=== PATIENT | female | born 1990 | race African-American/Black ===

== ENCOUNTER 2018-11-12 10:01 | Emergency (ER) | payer SELFPAY ==
--- NOTE | 2018-11-12 10:56 | RAD REPORT ---
EXAM DESCRIPTION: RAD - Chest Pa And Lat (2 Views) - 11/12/2018 10:37 am CLINICAL HISTORY: Cough and congestion COMPARISON: April 2014 TECHNIQUE: PA and lateral views of the chest were obtained. FINDINGS: The lungs are clear. Heart size is normal and central vasculature is within normal limit s. No pleural effusion or pneumothorax seen. No acute bony finding noted. No aortic abnormality. No significant change from comparison. IMPRESSION: No acute cardiopulmonary process.
--- NOTE | 2018-11-12 11:21 | ER ---
Nurse's Notes [facility] Name: Robyn Causey Age: 28 yrs Sex: Female : 1990 Arrival Date: 11/12/2018 Time: 10:06 Bed 20 Private MD: Diagnosis: Acute upper respiratory infection, unspecified Presentation: 11/12 10:14 Presenting complaint: Patient states: productive cough x 1 week. Denies fever. Pt ss reports chest soreness from excessive coughing. Transition of care: patient was not received from another setting of care. Resp Distress? No respiratory distress is noted at this time. Onset of symptoms was November 05, 2018. Risk Assessment: Do you want to hurt yourself or someone else? Patient reports no desire to harm self or others. Initial Sepsis Screen: Does the patient meet any 2 criteria? No. Patient's initial sepsis screen is negative. Initial Sepsis Screen: Does the patient have a suspected source of infection? Yes: Productive cough/pneumonia. Care prior to arrival: None. 10:14 Method Of Arrival: Ambulatory ss 10:14 Acuity: SEBAS 4 ss PUBLIC RELATIONS: 10:43 LMP N/A - . tw2 Historical: - Allergies: 10:16 Codeine; ss 10:16 Ibuprofen; ss 10:16 Aspirin; ss - Home Meds: 10:16 None [Active]; ss - PMHx: 10:16 Hypertension; ss - PSHx: 10:16 None; ss - Immunization history:: Adult Immunizations up to date. - Social history:: Smoking status: Patient/guardian denies using tobacco, the patient reports quitting approximately 2 years ago. - Ebola Screening: : Patient denies exposure to infectious person Patient denies travel to an Ebola-affected area in the 21 days before illness onset. Screenin:10 Abuse screen: Denies threats or abuse. Nutritional screening: No deficits noted. tw2 Tuberculosis screening: No symptoms or risk factors identified. Fall Risk None identified. Assessment: 10:35 Reassessment: pt in imaging at this time, unavailable at this time for flu and strep tw2 swabs. 10:42 Reassessment: pt bk from imaging at this time, nad. General: Appears in no apparent tw2 distress. obese, Behavior is calm, cooperative, agitated. Pain: Complains of pain in uvula, left aspect of posterior pharynx and right aspect of posterior pharynx. Neuro: Level of Consciousness is awake, alert, obeys commands, Oriented to person, place, time, situation. Cardiovascular: Heart tones S1 S2 Capillary refill < 3 seconds Patient's skin is warm and dry. Respiratory: Reports pain with cough pain with respiration Airway is patent Respiratory effort is even, unlabored, Respiratory pattern is regular, symmetrical, Breath sounds are clear bilaterally. GI: No signs and/or symptoms were reported involving the gastrointestinal system. Abdomen is round non-distended, obese. : No signs and/or symptoms were reported regarding the genitourinary system. EENT: Reports nasal congestion nasal discharge. Derm: No signs and/or symptoms reported regarding the dermatologic system. Musculoskeletal: Range of motion: intact in all extremities. 11:21 Reassessment: Patient appears in no apparent distress at this time. No changes from tw2 previously documented assessment. Patient and/or family updated on plan of care and expected duration. Pain level reassessed. Patient is alert, oriented x 3, equal unlabored respirations, skin warm/dry/pink. 11:31 Reassessment: Patient appears in no apparent distress at this time. Patient and/or tw2 family updated on plan of care and expected duration. Pain level reassessed. Vital Signs: 10:16 BP 147 / 81; Pulse 87; Resp 17; Temp 97.4(TE); Pulse Ox 100% on R/A; Weight 108.86 kg; ss Height 5 ft. 4 in. (162.56 cm); Pain 7/10; 11:16 BP 112 / 58; Pulse 75; Resp 17; Temp 97.9(TE); Pulse Ox 100% on R/A; tw2 10:16 Body Mass Index 41.20 (108.86 kg, 162.56 cm) ED Course: 10:06 Patient arrived in ED. mr 10:07 Rajani Farmer FNP-C [facility] kb 10:07 Osmin Mann MD is Attending Physician. kb 10:10 Bed in low position. Call light in reach. tw2 10:15 Triage completed. ss 10:16 Arm band placed on right wrist. ss 10:25 Parul Jackson, [place] is Primary Nurse. tw2 10:33 Chest Pa And Lat (2 Views) XRAY In Process Unspecified. EDMS 10:44 Flu Sent. tw2 10:44 Strep Sent. tw2 11:30 No provider procedures requiring assistance completed. Patient did not have IV access tw2 during this emergency room visit. Administered Medications: No medications were administered Outcome: 11:20 Discharge ordered by . kb 11:31 Discharged to home ambulatory. tw2 11:31 Condition: stable 11:31 Discharge instructions given to patient, Instructed on discharge instructions, follow up and referral plans. medication usage, Demonstrated understanding of instructions, follow-up care, medications, Prescriptions given X 2. 11:31 Patient left the ED. tw2 Signatures: Dispatcher [employer] EDMS Rajani Farmer, CHIEF OPERATOR HYDROFORMER-C CHIEF OPERATOR HYDROFORMER-Karen CardonaRima mr Valerie Bingham, RN RN Parul Jackson RN RN tw2
--- NOTE | 2018-11-12 11:21 | EDPHYS ---
Physician Documentation [facility] Name: Robyn Causey Age: 28 yrs Sex: Female : 1990 Arrival Date: 11/12/2018 Time: 10:06 Bed 20 Private MD: ED Physician Osmin Mann HPI: 11/12 11:05 This 28 yrs old Black Female presents to ER via Ambulatory with complaints of Cough, kb Congestion, Chest Pain. 11:05 The patient or guardian reports cough, that is intermittent, described as moderate, kb with no sputum. Onset: The symptoms/episode began/occurred 1 week(s) ago. Severity of symptoms: At their worst the symptoms were mild, moderate, in the emergency department the symptoms are unchanged. Modifying factors: The symptoms are alleviated by nothing, the symptoms are aggravated by nothing. Associated signs and symptoms: Pertinent positives: rhinorrhea, Pertinent negatives: chest pain, diarrhea, ear ache, fever, nausea, sore throat, vomiting. The patient has not experienced similar symptoms in the past. The patient has not recently seen a physician. Pt reports cough and runny nose for a week. Denies fever.. 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 tw2 Historical: - Allergies: 10:16 Codeine; ss 10:16 Ibuprofen; ss 10:16 Aspirin; ss - Home Meds: 10:16 None [Active]; ss - PMHx: 10:16 Hypertension; ss - PSHx: 10:16 None; ss - Immunization history:: Adult Immunizations up to date. - Social history:: Smoking status: Patient/guardian denies using tobacco, the patient reports quitting approximately 2 years ago. - Ebola Screening: : Patient denies exposure to infectious person Patient denies travel to an Ebola-affected area in the 21 days before illness onset. ROS: 10:58 Constitutional: Negative for fever, chills, and weight loss, Neck: Negative for injury, kb pain, and swelling, Cardiovascular: Negative for chest pain, palpitations, and edema, Abdomen/GI: Negative for abdominal pain, nausea, vomiting, diarrhea, and constipation, Back: Negative for injury and pain, : Negative for injury, bleeding, discharge, and swelling, MS/Extremity: Negative for injury and deformity, Skin: Negative for injury, rash, and discoloration, Neuro: Negative for headache, weakness, numbness, tingling, and seizure. 10:58 ENT: Positive for rhinorrhea. 10:58 Respiratory: Positive for cough, Negative for dyspnea on exertion, hemoptysis, orthopnea, pleurisy, shortness of breath, sputum production, wheezing. Exam: 10:58 Constitutional: This is a well developed, well nourished patient who is awake, alert, kb and in no acute distress. Head/Face: Normocephalic, atraumatic. ENT: Nares patent. No nasal discharge, no septal abnormalities noted. Tympanic membranes are normal and external auditory canals are clear. Oropharynx with no redness, swelling, or masses, exudates, or evidence of obstruction, uvula midline. Mucous membranes moist. Neck: Trachea midline, no thyromegaly or masses palpated, and no cervical lymphadenopathy. Supple, full range of motion without nuchal rigidity, or vertebral point tenderness. No Meningismus. Chest/axilla: Normal chest wall appearance and motion. Nontender with no deformity. No lesions are appreciated. Cardiovascular: Regular rate and rhythm with a normal S1 and S2. No gallops, murmurs, or rubs. Normal PMI, no JVD. No pulse deficits. Respiratory: Lungs have equal breath sounds bilaterally, clear to auscultation and percussion. No rales, rhonchi or wheezes noted. No increased work of breathing, no retractions or nasal flaring. Abdomen/GI: Soft, non-tender, with normal bowel sounds. No distension or tympany. No guarding or rebound. No evidence of tenderness throughout. Back: No spinal tenderness. No costovertebral tenderness. Full range of motion. Skin: Warm, dry with normal turgor. Normal color with no rashes, no lesions, and no evidence of cellulitis. MS/ Extremity: Pulses equal, no cyanosis. Neurovascular intact. Full, normal range of motion. Neuro: Awake and alert, GCS 15, oriented to person, place, time, and situation. Cranial nerves II-XII grossly intact. Motor strength 5/5 in all extremities. Sensory grossly intact. Cerebellar exam normal. Normal gait. Vital Signs: 10:16 BP 147 / 81; Pulse 87; Resp 17; Temp 97.4(TE); Pulse Ox 100% on R/A; Weight 108.86 kg; ss Height 5 ft. 4 in. (162.56 cm); Pain 7/10; 11:16 BP 112 / 58; Pulse 75; Resp 17; Temp 97.9(TE); Pulse Ox 100% on R/A; tw2 10:16 Body Mass Index 41.20 (108.86 kg, 162.56 cm) ss MDM: 10:17 Patient medically screened. kb 10:58 Data reviewed: vital signs, nurses notes. Data interpreted: Pulse oximetry: on room air kb is 100 %. Interpretation: normal. 11:20 Counseling: I had a detailed discussion with the patient and/or guardian regarding: the kb historical points, exam findings, and any diagnostic results supporting the discharge/admit diagnosis, lab results, radiology results, the need for outpatient follow up, a family practitioner, to return to the emergency department if symptoms worsen or persist or if there are any questions or concerns that arise at home. 11/12 10:20 Order name: Flu; Complete Time: 11:20 kb 11/12 10:20 Order name: Strep; Complete Time: 10:58 kb 11/12 10:20 Order name: Chest Pa And Lat (2 Views) XRAY; Complete Time: 10:58 kb 11/12 10:58 Order name: Throat Culture EDMS Administered Medications: No medications were administered Disposition: 18:53 Co-signature as Attending Physician, Osmin Mann MD Available for consultation at ps1 all times. . Disposition: 11/12/18 11:20 Discharged to Home. Impression: Acute upper respiratory infection, unspecified. - Condition is Stable. - Discharge Instructions: Upper Respiratory Infection, Adult, [id number]. - Prescriptions for Prednisone 20 mg Oral Tablet - take 1 tablet by ORAL route once daily for 5 days; 5 tablet. Tessalon Perles 100 mg Oral Capsule - take 1 capsule by ORAL route every 8 hours As needed; 15 capsule. - Medication Reconciliation Form, Thank You Letter, Antibiotic Education, Prescription Opioid Use, Work release form form. - Follow up: Emergency Department; When: As needed; Reason: Worsening of condition. Follow up: Private Physician; When: 2 - 3 days; Reason: Recheck today's complaints, Continuance of care, Re-evaluation by your physician. Signatures: Dispatcher [employer] EDMS Rajani Farmer FNP-C FNP-Valerie Cantrell, RN RN ss Parul Jackson RN RN tw2 Osmin Mann MD MD ps1 Corrections: (The following items were deleted from the chart) 11:31 11:20 11/12/2018 11:20 Discharged to Home. Impression: Acute upper respiratory tw2 infection, unspecified. Condition is Stable. Forms are Medication Reconciliation Form, Thank You Letter, Antibiotic Education, Prescription Opioid Use. Follow up: Emergency Department; When: As needed; Reason: Worsening of condition. Follow up: Private Physician; When: 2 - 3 days; Reason: Recheck today's complaints, Continuance of care, Re-evaluation by your physician. kb
[2018-11-12 11:45] VITALS: BP 112/58; TEMP 97.9; O2SAT 100
== END 2018-11-12 11:31 | disposition home or self-care (01) ==
LOC: ER 10:01
DX: J06.9 Acute upper respiratory infection, unspecified (principal); I10 Essential (primary) hypertension; Z88.5 Allergy status to narcotic agent; Z88.6 Allergy status to analgesic agent
CPT/HCPCS: 71046; 87070; 87081; 87804; 99283

== ENCOUNTER 2019-01-26 12:42 | Emergency (ER) | payer SELFPAY ==
--- OUTSIDE RECORDS SUMMARY | 2019-01-26 12:46 | XMS REPORT | Summary of Care ---
:1990 Author Organization [facility] Address [address] [place] [address] Care Team Providers Name Role Phone Santi Moura LINE REPAIRER TOWER Primary Care Provider Encounter Details Date Type Department Care Team Description 01/26/2019 [facility], [facility] [facility] [address] [place] [address] [facility] [phone] [place] [address] Allergies Active Allergy Reactions Severity Noted Date Comments Aspirin Other - See comments High 09/23/2017 Seizure Hydrocodone Other - See comments High 09/23/2017 seizures Ibuprofen Other - See comments High 09/23/2017 Seizures documented as of this encounter (statuses as of 01/26/2019) Medications Medication Sig Dispensed Refills Start Date End Date Status MELATONIN ORAL Take by mouth. 0 Active norethindrone 0.35 mg Take 1 tablet by 1 Package 0 12/05/2018 Active tabletIndications: mouth daily. Missed menses norethindrone 0.35 mg Take 1 tablet by 1 Package 2 12/25/2018 Active tabletIndications: mouth daily. Encounter for contraceptive management, unspecified type documented as of this encounter (statuses as of 01/26/2019) Active Problems Problem Noted Date Well woman exam 12/15/2018 Encounter for well woman exam 09/23/2017 Encounter for contraceptive management, unspecified type 09/23/2017 Screening for STD (sexually transmitted disease) 09/23/2017 Obesity, unspecified classification, unspecified obesity type, unspecified whether serious comorbidity present BMI 40.0-44.9, adult 09/23/2017 Metrorrhagia 09/23/2017 documented as of this encounter (statuses as of 01/26/2019) Immunizations Name Administration Dates Next Due TDAP (ADACEL) VACCINE 07/04/2017 documented as of this encounter Social History Tobacco Use Types Packs/Day Years Used Date Former Smoker Cigarettes 09/23/2004 - 09/23/2016 Smokeless Tobacco: Never Used Comments: on and off since age 14. quit 2017 Alcohol Use Drinks/Week oz/Week Comments Yes ocassional Sex Assigned at Date Recorded Not on file Job Start Date Occupation Industry Not on file Not on file Not on file Travel History Travel Start Travel End No recent travel history available. documented as of this encounter Last Filed Vital Signs Not on filedocumented in this encounter Plan of Treatment Date Type Specialty Care Team Description 03/09/2019 Nurse Visit OB Satellites Visit, [facility] Nurse Health Maintenance Due Date Last Done Comments VARICELLA VACCINES (1 of 2 - 13+ 2003 2-dose series) INFLUENZA VACCINE (#1) 2019 PAP SMEAR 09/23/2020 09/23/2017 DTaP,Tdap,and Td Vaccines (2 - Td) 07/04/2027 07/04/2017 PNEUMOCOCCAL 0-64 YEARS COMBINED Aged Out No longer eligible based on SERIES patient's age to complete this topic documented as of this encounter Results Not on filedocumented in this encounter Insurance Payer Benefit Plan Subscriber ID Effective Phone Address Type / Group Dates [facility] xxxxxxxxx 2017-Prese [phone] Medicaid [place]OM[place] [id number] [place] [address] documented as of this encounter Advance Directives Name Relationship Healthcare Agent Relationship Communication Jonelle Causey Mother Primary healthcare agent
--- OUTSIDE RECORDS SUMMARY | 2019-01-26 12:46 | XMS REPORT | Summary of Care ---
:1990 Author Organization [facility] Address [address] [place] [address] Care Team Providers Name Role Phone Santi Moura [facility] Primary Care Provider Reason for Visit Reason Comments Refill Request Encounter Details Date Type Department Care Team Description 01/13/2019 Refill [facility] [place] Ref[place] Request [address] [facility] [id number] [place] [address] [place] [address] Allergies Active Allergy Reactions Severity Noted Date Comments Aspirin Other - See comments High 09/23/2017 Seizure Hydrocodone Other - See comments High 09/23/2017 seizures Ibuprofen Other - See comments High 09/23/2017 Seizures documented as of this encounter (statuses as of 01/13/2019) Medications Medication Sig Dispensed Refills Start Date End Date Status MELATONIN ORAL Take by mouth. 0 Active norethindrone 0.35 mg Take 1 tablet by 1 Package 0 12/05/2018 Active tabletIndications: mouth daily. Missed menses norethindrone 0.35 mg Take 1 tablet by 1 Package 2 12/25/2018 Active tabletIndications: mouth daily. Encounter for contraceptive management, unspecified type documented as of this encounter (statuses as of 01/13/2019) Active Problems Problem Noted Date Well woman exam 12/15/2018 Encounter for well woman exam 09/23/2017 Encounter for contraceptive management, unspecified type 09/23/2017 Screening for STD (sexually transmitted disease) 09/23/2017 Obesity, unspecified classification, unspecified obesity type, unspecified whether serious comorbidity present BMI 40.0-44.9, adult 09/23/2017 Metrorrhagia 09/23/2017 documented as of this encounter (statuses as of 01/13/2019) Immunizations Name Administration Dates Next Due TDAP [...] Description 03/09/2019 Nurse Visit OB Satellites Visit, [facility] Nurse Health Maintenance Due Date Last Done Comments VARICELLA VACCINES (1 of 2 - 13+ 2003 2-dose series) INFLUENZA VACCINE 02/01/2019 PAP SMEAR 09/23/2020 09/23/2017 DTaP,Tdap,and Td Vaccines (2 - Td) 07/04/2027 07/04/2017 PNEUMOCOCCAL 0-64 YEARS COMBINED Aged Out No longer eligible based on SERIES patient's age to complete this topic documented as of this encounter Results Not on filedocumented in this encounter Visit Diagnoses Diagnosis Missed menses Absence of menstruation documented in this encounter Insurance Payer Benefit Plan Subscriber ID Effective Phone Address Type / Group Dates [facility] xxxxxxxxx 2017-Prese [phone] Medicaid WOMEN nt [address] [place] [address] documented as of this encounter Advance Directives Name Relationship Healthcare Agent Relationship Communication Jonelle Causey Mother Primary healthcare agent
--- OUTSIDE RECORDS SUMMARY | 2019-01-26 12:46 | XMS REPORT ---
:1990 [facility] Address [address] [place] [address] Dr. Sauceda [address] [place] [address] Care Team Providers Name Role Phone Unavailable Unavailable Unavailable Problems This patient has no known problems. Allergies, Adverse Reactions, Alerts This patient has no known allergies or adverse reactions. Medications This patient has no known medications.
--- OUTSIDE RECORDS SUMMARY | 2019-01-26 12:46 | XMS REPORT | Summary of Care ---
:1990 Author Organization [facility] Address [address] [place] [address] Care Team Providers Name Role Phone Santi Moura Andrei TRUCK CATERER Primary Care Provider Reason for Visit Reason Comments Other renewel request for maricruz tablet #28 Encounter Details Date Type Department Care Team Description 01/12/2019 Telephone [facility]- Scarlett Camacho Other (renewel request Erin Vera [facility] for maricruz tablet #28 [address] ) [facility] [address] [place], [place] [id number] Allergies Active Allergy Reactions Severity Noted Date Comments Aspirin Other - See comments High 09/23/2017 Seizure Hydrocodone Other - See comments High 09/23/2017 seizures Ibuprofen Other - See comments High 09/23/2017 Seizures documented as of this encounter (statuses as of 01/12/2019) Medications Medication Sig Dispensed Refills Start Date End Date Status MELATONIN ORAL Take by mouth. 0 Active norethindrone 0.35 mg Take 1 tablet by 1 Package 0 12/05/2018 Active tabletIndications: mouth daily. Missed menses norethindrone 0.35 mg Take 1 tablet by 1 Package 2 12/25/2018 Active tabletIndications: mouth daily. Encounter for contraceptive management, unspecified type documented as of this encounter (statuses as of 01/12/2019) Active Problems Problem Noted Date Well woman exam 12/15/2018 Encounter for well woman exam 09/23/2017 Encounter for contraceptive management, unspecified type 09/23/2017 Screening for STD (sexually transmitted disease) 09/23/2017 Obesity, unspecified classification, unspecified obesity type, unspecified whether serious comorbidity present BMI 40.0-44.9, adult 09/23/2017 Metrorrhagia 09/23/2017 documented as of this encounter (statuses as of 01/12/2019) Immunizations Name Administration Dates Next Due TDAP [...] Description 03/09/2019 Nurse Visit OB Satellites Visit, [facility] Nurse Health Maintenance Due Date Last Done [...] Address Type / Group Dates [facility] xxxxxxxxx 2017-Amaya [phone] Medicaid WOMEN nt [address] [place] [address] documented as of this encounter Advance Directives Name Relationship Healthcare Agent Relationship Communication Jonelle Causey Mother Primary healthcare agent
[2019-01-26] MEDS ORDERED: ALBUTEROL 2.5 MG/3 ML NEB SOL ONE (13:58)
[2019-01-26] MEDS ORDERED: IPRATROPIUM BROM 0.5MG/2.5ML ONE (13:58)
--- NOTE | 2019-01-26 15:26 | ER ---
Nurse's Notes [facility] Name: Robyn Causey Age: 28 yrs Sex: Female : 1990 Arrival Date: 01/26/2019 Time: 12:45 Bed 23 Private MD: None, None Diagnosis: Acute upper respiratory infection, unspecified Presentation: 01/26 13:05 Presenting complaint: Patient states: productive cough, body aches, nasal congestion iw and mild sore throat since yesterday, no fever. Transition of care: patient was not received from another setting of care. Onset of symptoms was January 25, 2019. Risk Assessment: Do you want to hurt yourself or someone else? Patient reports no desire to harm self or others. Initial Sepsis Screen: Does the patient meet any 2 criteria? No. Patient's initial sepsis screen is negative. Does the patient have a suspected source of infection? No. Patient's initial sepsis screen is negative. Care prior to arrival: None. 13:05 Method Of Arrival: Ambulatory iw 13:05 Acuity: SEBAS 4 iw Triage Assessment: 13:47 General: Appears in no apparent distress. comfortable, Behavior is calm, cooperative, bp appropriate for age. Pain: Denies pain. EENT: Reports nasal congestion. Neuro: No deficits noted. Cardiovascular: No deficits noted. Respiratory: Reports cough that is. GI: No signs and/or symptoms were reported involving the gastrointestinal system. : No signs and/or symptoms were reported regarding the genitourinary system. Derm: No deficits noted. Musculoskeletal: No deficits noted. 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 - Social history:: Smoking status: Patient/guardian denies using tobacco. - Ebola Screening: : Patient negative for fever greater than or equal to 101.5 degrees Fahrenheit, and additional compatible Ebola Virus Disease symptoms Patient denies exposure to infectious person Patient denies travel to an Ebola-affected area in the 21 days before illness onset No symptoms or risks identified at this time. Screenin:49 Abuse screen: Denies threats or abuse. Denies injuries from another. Nutritional bp screening: No deficits noted. Tuberculosis screening: No symptoms or risk factors identified. Fall Risk None identified. Assessment: 13:49 General: SEE TRIAGE NOTE. bp 14:49 Reassessment: PT TO XRAY. bp Vital Signs: 13:06 BP 128 / 82; Pulse 98; Resp 18 S; Temp 98.4(O); Pulse Ox 99% on R/A; Weight 99.79 kg; iw Height 5 ft. 4 in. (162.56 cm); Pain 8/10; 13:51 BP 128 / 87; Pulse 93; Pulse Ox 98% ; Pain 7/10; jp3 15:38 BP 126 / 81; Pulse 91; Resp 16; Temp 98.2(O); Pulse Ox 99% on R/A; rv 13:06 Body Mass Index 37.76 (99.79 kg, 162.56 cm) iw ED Course: 12:45 Patient arrived in ED. mr 12:45 None, None is Private Physician. mr 13:06 Triage completed. iw 13:06 Rajani Farmer FNP-C [facility]. kb 13:06 Brock Najera MD is Attending Physician. kb 13:06 Arm band placed on. iw 13:47 Shemar Lantigua, RN is Primary Nurse. bp 13:49 Patient has correct armband on for positive identification. Bed in low position. Call bp light in reach. Side rails up X2. 13:49 Bed in low position. Call light in reach. Warm blanket given. Verbal reassurance given. jp3 Pulse ox on. NIBP on. 13:49 Flu and/or RSV swab sent to lab. Strep swab sent to lab. Patient maintains SpO2 jp3 saturation greater than 95% on room air. 13:50 Strep Sent. jp3 13:50 Flu Sent. jp3 14:22 Radiology exam delayed due to patient receiving breathing treatment at this time. jb2 14:57 Chest Pa And Lat (2 Views) XRAY In Process Unspecified. EDMS 15:39 No provider procedures requiring assistance completed. Patient did not have IV access rv during this emergency room visit. Administered Medications: 14:01 Drug: Albuterol 2.5 mg Route: Inhalation; bp 15:39 Follow up: Response: No adverse reaction rv 14:01 Drug: AtroVENT Aerosol 0.5 mg Route: Inhalation; bp 15:39 Follow up: Response: No adverse reaction rv Outcome: 15:24 Discharge ordered by . cady 15:39 Discharged to home ambulatory. rv 15:39 Condition: good 15:39 Discharge instructions given to patient, Instructed on discharge instructions, follow up and referral plans. Demonstrated understanding of instructions, follow-up care. 15:40 Patient left the ED. rv Signatures: Dispatcher [employer] EDMS Rajani Farmer, FRANCO SUPERVISOR RESEARCH KENNEL-Rima Britton mr LynchBrandon jb2 Sherrill Schumacher, [place] KOROMA iw Shemar Lantigua RN RN bp Vicente, Ronaldo, RN RN rv Maurice Rai jp3
--- NOTE | 2019-01-26 15:26 | EDPHYS ---
Physician Documentation [facility] Name: Robyn Causey Age: 28 yrs Sex: Female : 1990 Arrival Date: 01/26/2019 Time: 12:45 Bed 23 Private MD: None, None ED Physician Brock Najera HPI: 01/26 15:26 This 28 yrs old Black Female presents to ER via Ambulatory with complaints of Cough, kb Chest Congestion, Body aches. 15:26 The patient or guardian reports cough, that is intermittent, described as mild, with no kb sputum, flu symptoms. Onset: The symptoms/episode began/occurred 2 day(s) ago. Severity of symptoms: At their worst the symptoms were mild, moderate, in the emergency department the symptoms are unchanged. Modifying factors: The symptoms are alleviated by nothing, the symptoms are aggravated by nothing. Associated signs and symptoms: Pertinent positives: rhinorrhea. The patient has not experienced similar symptoms in the past. The patient has not recently seen a physician. 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 - Social history:: Smoking status: Patient/guardian denies using tobacco. - Ebola Screening: : Patient negative for fever greater than or equal to 101.5 degrees Fahrenheit, and additional compatible Ebola Virus Disease symptoms Patient denies exposure to infectious person Patient denies travel to an Ebola-affected area in the 21 days before illness onset No symptoms or risks identified at this time. ROS: 15:25 Neck: Negative for injury, pain, and swelling, Cardiovascular: Negative for chest pain, kb palpitations, and edema, Back: Negative for injury and pain, MS/Extremity: Negative for injury and deformity, Skin: Negative for injury, rash, and discoloration, Neuro: Negative for headache, weakness, numbness, tingling, and seizure. 15:25 Constitutional: Positive for body aches, fatigue, malaise. 15:25 ENT: Positive for rhinorrhea, sinus congestion, sore throat. 15:25 Respiratory: Positive for cough, Negative for dyspnea on exertion, hemoptysis, orthopnea, pleurisy, shortness of breath, sputum production, wheezing. Exam: 15:25 Constitutional: This is a well developed, well nourished patient who is awake, alert, kb and in no acute distress. Head/Face: Normocephalic, atraumatic. Neck: Trachea midline, no thyromegaly or masses palpated, and no cervical lymphadenopathy. Supple, full range of motion without nuchal rigidity, or vertebral point tenderness. No Meningismus. Chest/axilla: Normal chest wall appearance and motion. Nontender with no deformity. No lesions are appreciated. Cardiovascular: Regular rate and rhythm with a normal S1 and S2. No gallops, murmurs, or rubs. Normal PMI, no JVD. No pulse deficits. Respiratory: Lungs have equal breath sounds bilaterally, clear to auscultation and percussion. No rales, rhonchi or wheezes noted. No increased work of breathing, no retractions or nasal flaring. Abdomen/GI: Soft, non-tender, with normal bowel sounds. No distension or tympany. No guarding or rebound. No evidence of tenderness throughout. Back: No spinal tenderness. No costovertebral tenderness. Full range of motion. Skin: Warm, dry with normal turgor. Normal color with no rashes, no lesions, and no evidence of cellulitis. MS/ Extremity: Pulses equal, no cyanosis. Neurovascular intact. Full, normal range of motion. Neuro: Awake and alert, GCS 15, oriented to person, place, time, and situation. Cranial nerves II-XII grossly intact. Motor strength 5/5 in all extremities. Sensory grossly intact. Cerebellar exam normal. Normal gait. 15:26 ENT: External ear(s): are unremarkable, Ear canal(s): are normal, TM's: are normal, kb Nose: nasal drainage, that is moderate, and is seen coming from both nares, that is clear, Mouth: is normal, Posterior pharynx: Airway: normal, patent, Tonsils: are normal in appearance, Uvula: normal, midline, swelling, is not appreciated, erythema, that is moderate, exudate, is not appreciated. Vital Signs: 13:06 BP 128 / 82; Pulse 98; Resp 18 S; Temp 98.4(O); Pulse Ox 99% on R/A; Weight 99.79 kg; iw Height 5 ft. 4 in. (162.56 cm); Pain 8/10; 13:51 BP 128 / 87; Pulse 93; Pulse Ox 98% ; Pain 7/10; jp3 15:38 BP 126 / 81; Pulse 91; Resp 16; Temp 98.2(O); Pulse Ox 99% on R/A; rv 13:06 Body Mass Index 37.76 (99.79 kg, 162.56 cm) iw MDM: 13:41 Patient medically screened. kb 15:23 Data reviewed: vital signs, nurses notes. Data interpreted: Pulse oximetry: on room air kb is 98 %. Interpretation: normal. Counseling: I had a detailed discussion with the patient and/or guardian regarding: the historical points, exam findings, and any diagnostic results supporting the discharge/admit diagnosis, lab results, radiology results, the need for outpatient follow up, a family practitioner, to return to the emergency department if symptoms worsen or persist or if there are any questions or concerns that arise at home. 01/26 13:07 Order name: Flu; Complete Time: 14:18 kb 01/26 13:07 Order name: Strep 01/26 13:53 Order name: Chest Pa And Lat (2 Views) XRAY 01/26 14:21 Order name: Throat Culture EDMS Administered Medications: 14:01 Drug: Albuterol 2.5 mg Route: Inhalation; bp 15:39 Follow up: Response: No adverse reaction rv 14:01 Drug: AtroVENT Aerosol 0.5 mg Route: Inhalation; bp 15:39 Follow up: Response: No adverse reaction rv Disposition: 01/26/19 15:24 Discharged to Home. Impression: Acute upper respiratory infection, unspecified. - Condition is Stable. - Discharge Instructions: Upper Respiratory Infection, Adult, [id number]. - Medication Reconciliation Form, Thank You Letter, Antibiotic Education, Prescription Opioid Use form. - Follow up: Private Physician; When: 2 - 3 days; Reason: Recheck today's complaints, Continuance of care, Re-evaluation by your physician. Follow up: Emergency Department; When: As needed; Reason: Worsening of condition. Addendum: 01/27/2019 20:35 Co-signature as Attending Physician, Brock Najera MD I agree with the assessment and c villalta plan of care. Signatures: Dispatcher [employer] EDMS Rajani Farmer, ECOLOGICAL ECONOMIST-C ECOLOGICAL ECONOMIST-Ckb Brock Najera MD MD cha Williams, Irene, Shemar Holly RN, RN RN bp Vicente, Ronaldo, RN RN rv Corrections: (The following items were deleted from the chart) 01/26 15:26 15:25 Constitutional: This is a well developed, well nourished patient who is awake, kb alert, and in no acute distress. Head/Face: Normocephalic, atraumatic. ENT: Nares patent. No nasal discharge, no septal abnormalities noted. Tympanic membranes are normal and external auditory canals are clear. Oropharynx with no redness, swelling, or masses, exudates, or evidence of obstruction, uvula midline. Mucous membranes moist. Neck: Trachea midline, no thyromegaly or masses palpated, and no cervical lymphadenopathy. Supple, full range of motion without nuchal rigidity, or vertebral point tenderness. No Meningismus. Chest/axilla: Normal chest wall appearance and motion. Nontender with no deformity. No lesions are appreciated. Cardiovascular: Regular rate and rhythm with a normal S1 and S2. No gallops, murmurs, or rubs. Normal PMI, no JVD. No pulse deficits. Respiratory: Lungs have equal breath sounds bilaterally, clear to auscultation and percussion. No rales, rhonchi or wheezes noted. No increased work of breathing, no retractions or nasal flaring. Abdomen/GI: Soft, non-tender, with normal bowel sounds. No distension or tympany. No guarding or rebound. No evidence of tenderness throughout. Back: No spinal tenderness. No costovertebral tenderness. Full range of motion. Skin: Warm, dry with normal turgor. Normal color with no rashes, no lesions, and no evidence of cellulitis. MS/ Extremity: Pulses equal, no cyanosis. Neurovascular intact. Full, normal range of motion. Neuro: Awake and alert, GCS 15, oriented to person, place, time, and situation. Cranial nerves II-XII grossly intact. Motor strength 5/5 in all extremities. Sensory grossly intact. Cerebellar exam normal. Normal gait. kb 15:40 15:24 01/26/2019 15:24 Discharged to Home. Impression: Acute upper respiratory rv infection, unspecified. Condition is Stable. Forms are Medication Reconciliation Form, Thank You Letter, Antibiotic Education, Prescription Opioid Use. Follow up: Private Physician; When: 2 - 3 days; Reason: Recheck today's complaints, Continuance of care, Re-evaluation by your physician. Follow up: Emergency Department; When: As needed; Reason: Worsening of condition. kb
--- NOTE | 2019-01-26 15:30 | RAD REPORT ---
EXAM DESCRIPTION: RAD - Chest Pa And Lat (2 Views) - 01/26/2019 2:52 pm CLINICAL HISTORY: Cough;Congestionbody aches, abdominal shielding utilized COMPARISON: November 2018 TECHNIQUE: PA and lateral views of the chest were obtained. FINDINGS: The lungs are clear. Heart size is normal and central vasculature is within normal limit s. No pleural effusion or pneumothorax seen. No acute bony finding noted. No aortic abnormality. IMPRESSION: No acute cardiopulmonary process. No significant change from comparison.
[2019-01-26 16:36] VITALS: BP 126/81; TEMP 98.2; O2SAT 99
== END 2019-01-26 15:40 | disposition home or self-care (01) ==
LOC: ER 12:42
DX: J06.9 Acute upper respiratory infection, unspecified (principal); I10 Essential (primary) hypertension; Z88.5 Allergy status to narcotic agent; Z88.6 Allergy status to analgesic agent
CPT/HCPCS: 71046; 87070; 87081; 87804; 99284

== ENCOUNTER 2021-06-06 16:13 | Emergency (ER) | payer OTHER ==
--- OUTSIDE RECORDS SUMMARY | 2021-06-06 16:16 | XMS REPORT | Continuity of Care Document ---
:1990 Author Organization [facility] t Address [address] [place] [address] Care Team Providers Name Role Phone Andrei GREENBERG Primary Care Physician Unavailable LISETH LAGUERRE Attending Clinician Unavailable UNKNOWN Attending Clinician Unavailable JULES Attending Clinician Unavailable Andrei GREENBERG Attending Clinician Unavailable Payers Payer Name Policy Type Policy Number Effective Date Expiration Date [facility] [id number] 2020 CHOICE MEDICAID 00:00:00 Problems This patient has no known problems. Allergies, Adverse Reactions, Alerts Allergy Allergy Status Severity Reaction(s) Onset Inactive Treating Comm ents Source Name Type Date Date Clinician ASPIRIN DRUG Active High Other-Cmnt 2018-0 Unive rs INGREDI 09-23 ity of 00:00: [address] HYDROCOD DRUG Active High Other-Cmnt 2018-0 Univ ers ONE INGREDI 09-23 ity of 00:00: [address] IBUPROFE DRUG Active High Other-Cmnt 2018-0 Univ ers N INGREDI 09-23 ity of 00:00: [address] Medications This patient has no known medications. Procedures This patient has no known procedures. Encounters Start End Encounter Admission Attending Care Care Encounter Source Date/Time Date/Time Type Type Clinicians Facility Department ID 2021-04-10 2021-04-10 Outpatient Andrei LAGUERRE [facility] [id number] Univers 13:15:00 13:15[id number] 2021-04-10 Outpatient Andrei LAGUERRE [facility] [id number] Univers 13:15:00 13:15:00 MARTA [facility] 2021-03-20 2021-03-20 Outpatient R [facility] [id number] Univers 13:00:00 13:00:[id number] [facility] 2021-03-20 2021-03-20 Outpatient R UNKNOWN, [facility] [id number] Univers 13:00:00 13:00:[address] [facility] 2021-03-19 2021-03-19 Outpatient R [facility] [id number] Univers 13:20:00 13:20:[id number] [facility] 2021-03-19 2021-03-19 Outpatient R YFN [facility] [id number] Univers 13:20:00 13:20:[address]ANNA it y [facility] 2021-03-18 2021-03-18 Outpatient [facility] [id number] Univers 12:00:00 12:00:[id number] [facility] 2021-03-18 2021-03-18 Outpatient R [facility] [id number] Univers 12:00:00 12:00:[address] [facility] 2020-11-17 2020-11-17 Outpatient R DIONICIO, [facility] [id number] Univers 09:00:00 09:00:00 DILAN [id number] ity o [facility] 2020-11-17 2020-11-17 Outpatient R DIONICIO [facility] [id number] Univers 09:00:00 09:00:00 DILAN ity o [facility] 2020-11-16 2020-11-16 Outpatient R GREENBERG, [facility] [id number] Univers 08:45:00 08:45:00 DILAN [id number] ity o f [facility] 2020-11-16 2020-11-16 Outpatient R GREENBERG, [facility] [id number] Univers 08:45:00 08:45:00 DILAN ity o [facility] 2020-04-13 2020-04-13 Outpatient R DIONICIO [facility] [id number] Univers 15:00:00 15:00:00 DILAN [id number] ity o f [facility] 2020-04-13 2020-04-13 Outpatient Andrei GREENBERG [facility] [id number] Univers 15:00:00 15:00:00 DILAN hopper [facility] Results This patient has no known results.
[2021-06-06] MEDS ORDERED: ACETAMINOPHEN 325 MG TABLET ONE (17:00)
--- NOTE | 2021-06-06 17:32 | RAD REPORT ---
EXAM DESCRIPTION: RAD - Knee Left 3 View - 06/06/2021 5:27 pm CLINICAL HISTORY: PAIN COMPARISON: No comparisons FINDINGS: No acute fracture. No malalignment. No significant focal degenerative changes. Trace knee effusion. IMPRESSION: No acute osseous abnormality involving the left knee.
--- NOTE | 2021-06-06 18:42 | EDPHYS ---
Physician Documentation [facility] Name: Robyn Causey Age: 31 yrs Sex: Female : 1990 Arrival Date: 06/06/2021 Time: 16:46 Bed 12 Private MD: ED Physician Jefferson Hooker HPI: 06/06 16:58 This 31 yrs old Black Female presents to ER via Ambulatory with complaints of Knee pm1 Injury. 16:58 The patient presents with pain, that is acute. The complaints affect the left knee. pm1 Context: The problem was sustained at home, resulted from mis-step with left leg going behind her and twisting left knee as she was going down stairs. Onset: The symptoms/episode began/occurred today. Modifying factors: The symptoms are alleviated by elevating leg, the symptoms are aggravated by movement, weight bearing, bending knee. Associated signs and symptoms: Pertinent negatives numbness, tingling. 16:58 Treatment prior to arrival includes: no previous treatment. Severity of symptoms: in pm1 the emergency department the symptoms are unchanged. The patient has not experienced similar symptoms in the past. The patient has not recently seen a physician. Historical: - Allergies: 16:47 Aspirin; ll1 16:47 Codeine; ll1 16:47 Ibuprofen; ll1 - PMHx: 16:47 Hypertension; Asthma; pre diabetes; ll1 - PSHx: 16:47 None; ll1 - Immunization history:: Client reports having NOT received the Covid vaccine. Flu vaccine status is unknown. - Social history:: Smoking status: Patient denies any tobacco usage or history of. ROS: 16:58 Constitutional: Negative for fever, chills, and weight loss, Cardiovascular: Negative pm1 for chest pain, palpitations, and edema, Respiratory: Negative for shortness of breath, cough, wheezing, and pleuritic chest pain. 16:58 Skin: Negative for injury, rash, and discoloration, Neuro: Negative for headache, weakness, numbness, tingling, and seizure. 16:58 MS/extremity: Positive for pain, of the left knee, Negative for deformity. 16:58 All other systems are negative. Exam: 16:58 Constitutional: This is a well developed, well nourished patient who is awake, alert, pm1 and in no acute distress. Head/Face: Normocephalic, atraumatic. 16:58 Skin: Warm, dry with normal turgor. Normal color with no rashes, no lesions, and no evidence of cellulitis. 16:58 Eyes: Exam is negative for acute changes, Periorbital structures: appear normal, Extraocular movements: no acute changes, Conjunctiva: no acute changes, no injection. 16:58 Cardiovascular: Exam negative for acute changes, Rate: normal, Rhythm: regular, Pulses: no pulse deficits are appreciated. 16:58 Respiratory: Exam negative for acute changes, respiratory distress, shortness of breath. 16:58 Musculoskeletal/extremity: Extremities: grossly normal except: noted in the left knee: tenderness present to the medial aspect of the left knee. Negative for anterior and posterior drawer test. Pain elicited to medial aspect of left knee with internal and external rotation. 16:58 Neuro: Exam negative for acute changes, Orientation: is normal, Mentation: is normal, Motor: is normal, moves all fours. Vital Signs: 16:47 BP 151 / 109; Pulse 107; Resp 18; Temp 98.2; Pulse Ox 99% ; Weight 107.05 kg; Height 5 ll1 ft. 4 in. (162.56 cm); Pain 10/10; 16:47 Body Mass Index 40.51 (107.05 kg, 162.56 cm) ll1 MDM: 17:09 Patient medically screened. pm1 18:40 Data reviewed: vital signs. Data interpreted: Pulse oximetry: on room air is 99 %. pm1 Interpretation: normal. Counseling: I had a detailed discussion with the patient and/or guardian regarding: the historical points, exam findings, and any diagnostic results supporting the discharge/admit diagnosis, radiology results, the need for outpatient follow up, to return to the emergency department if symptoms worsen or persist or if there are any questions or concerns that arise at home. 06/06 16:51 Order name: Knee Left 3 View XRAY; Complete Time: 17:35 pm1 06/06 16:55 Order name: Knee Immobilizer; Complete Time: 18:51 pm1 06/06 16:55 Order name: Crutches; Complete Time: 18:51 pm1 Administered Medications: 16:52 Not Given (possibly allergicc): [place] (HYDROcodone-acetaminophen) 10 mg-325 mg 1 tabs ll1 PO once; RASS on ADMIN: Combtv4, Very Agttd3, Agttd2, Rstlss1, AlertClm0, Drwsy-1, Lt Sdtn-2, Mod Sdtn-3, Dp Sdtn-4, UnArsble-5 17:01 Drug: Tylenol 650 mg Route: PO; ll1 18:00 Follow up: Response: No adverse reaction jd3 Disposition: 06/07 07:15 Co-signature as Attending Physician, Jefferson Hooker MD I agree with the assessment and rn plan of care. Attestation: The patient's history, exam findings, diagnostics, and a summary of any interventions or procedures was reviewed in detail with Chau Adler NP. Disposition Summary: 06/06/21 18:41 Discharge Ordered Location: Home pm1 Problem: new pm1 Symptoms: have improved pm1 Condition: Stable pm1 Diagnosis - Unspecified internal derangement of left knee pm1 Followup: pm1 - With: Emergency Department - When: As needed - Reason: Worsening of condition Followup: pm1 - With: Private Physician - When: 2 - 3 days - Reason: Recheck today's complaints, Continuance of care, Re-evaluation by your physician Discharge Instructions: - Discharge Summary Sheet pm1 - Crutch Use, Adult pm1 - How to Use a Knee Immobilizer pm1 - Acute Knee Pain, Adult pm1 Forms: - Medication Reconciliation Form pm1 - Thank You Letter pm1 - Antibiotic Education pm1 - Prescription Opioid Use pm1 Signatures: Dispatcher [employer] Jefferson Howell MD MD rn Marinas, Patrick, NP INSTRUMENT INSTALLER pm1 Germán Jenkins RN RN 1 Fab Zhang RN jd3
--- NOTE | 2021-06-06 18:42 | ER ---
Nurse's Notes [facility] Name: Robyn Causey Age: 31 yrs Sex: Female : 1990 Arrival Date: 06/06/2021 Time: 16:46 Bed 12 Private MD: Diagnosis: Unspecified internal derangement of left knee Presentation: 06/06 16:47 Chief complaint: Patient states: Fell this morning and twisted L knee, pain since. ll1 Coronavirus screen: Vaccine status: Patient reports being unvaccinated. Client denies travel out of the [place] in the last 14 days. At this time, the client does not indicate any symptoms associated with coronavirus-19. Ebola Screen: Patient denies travel to an Ebola-affected area in the 21 days before illness onset. Initial Sepsis Screen: Does the patient meet any 2 criteria? HR > 90 bpm. No. Patient's initial sepsis screen is negative. Does the patient have a suspected source of infection? Yes: Bone or joint infection. Risk Assessment: Do you want to hurt yourself or someone else? Patient reports no desire to harm self or others. Onset of symptoms was June 06, 2021. 16:47 Method Of Arrival: Ambulatory ll1 16:47 Acuity: SEBAS 4 ll1 Triage Assessment: 16:56 General: Appears in no apparent distress. Behavior is calm, cooperative, appropriate ll1 for age. Pain: Complains of pain in L knee. Musculoskeletal: Circulation, motion, and sensation intact. Capillary refill < 3 seconds, Reports pain in L knee. Injury Description: fall. Historical: - Allergies: 16:47 Aspirin; ll1 16:47 Codeine; ll1 16:47 Ibuprofen; ll1 - PMHx: 16:47 Hypertension; Asthma; pre diabetes; ll1 - PSHx: 16:47 None; ll1 - Immunization history:: Client reports having NOT received the Covid vaccine. Flu vaccine status is unknown. - Social history:: Smoking status: Patient denies any tobacco usage or history of. Screenin:56 Abuse screen: Denies threats or abuse. Nutritional screening: No deficits noted. ll1 Tuberculosis screening: No symptoms or risk factors identified. 18:57 Fall Risk Ambulatory Aid- None/Bed Rest/Nurse Assist (0 pts). Gait- Normal/Bed jd3 Rest/Wheelchair (0 pts) Mental Status- Oriented to own ability (0 pts). Total Martinez Fall Scale indicates No Risk (0-24 pts). Assessment: 18:52 General: Appears in no apparent distress. comfortable, Behavior is calm, cooperative, jd3 appropriate for age. Pain: Denies pain. Neuro: Level of Consciousness is awake, alert, obeys commands, Oriented to person, place, time, situation. Cardiovascular: Denies chest pain, Capillary refill < 3 seconds Patient's skin is warm and dry. Respiratory: Airway is patent Respiratory effort is even, unlabored, Respiratory pattern is regular, symmetrical, Denies cough, shortness of breath. GI: No signs and/or symptoms were reported involving the gastrointestinal system. : No signs and/or symptoms were reported regarding the genitourinary system. EENT: No signs and/or symptoms were reported regarding the EENT system. Derm: Skin is intact, Skin is dry, Skin is normal, Skin temperature is warm. Musculoskeletal: Circulation, motion, and sensation intact. Range of motion: intact in all extremities. Vital Signs: 16:47 BP 151 / 109; Pulse 107; Resp 18; Temp 98.2; Pulse Ox 99% ; Weight 107.05 kg; Height 5 ll1 ft. 4 in. (162.56 cm); Pain 10/10; 16:47 Body Mass Index 40.51 (107.05 kg, 162.56 cm) ll1 ED Course: 16:46 Patient arrived in ED. ll1 16:47 Arm band placed on. ll1 16:48 Triage completed. ll1 16:49 Chau Adler NP is PHCP. pm1 16:49 Jefferson Hooker MD is Attending Physician. pm1 16:56 Cardiac monitoring not applicable on this patient. ll1 17:27 Knee Left 3 View XRAY In Process Unspecified. EDMS 18:02 Patient placed in an exam room, on a stretcher. ll1 18:08 Fab Zhang, [place] is Primary Nurse. jd3 18:56 No provider procedures requiring assistance completed. Patient did not have IV access jd3 during this emergency room visit. 18:57 Patient has correct armband on for positive identification. Bed in low position. Call jd3 light in reach. Side rails up X 1. Adult w/ patient. Administered Medications: 16:52 Not Given (possibly allergicc): [place] (HYDROcodone-acetaminophen) 10 mg-325 mg 1 tabs ll1 PO once; RASS on ADMIN: Combtv4, Very Agttd3, Agttd2, Rstlss1, AlertClm0, Drwsy-1, Lt Sdtn-2, Mod Sdtn-3, Dp Sdtn-4, UnArsble-5 17:01 Drug: Tylenol 650 mg Route: PO; ll1 18:00 Follow up: Response: No adverse reaction jd3 Outcome: 18:41 Discharge ordered by MD. pm1 18:56 Discharged to home via wheelchair, with family. jd3 18:56 Condition: stable 18:56 Discharge instructions given to patient, family, Instructed on discharge instructions, follow up and referral plans. Demonstrated understanding of instructions, follow-up care. 18:57 Patient left the ED. jd3 Signatures: Dispatcher [employer] EDMS Chau Adler NP FOOD SAFETY SCIENTIST pm1 Fab Zhang RN RN jd3 Germán Jenkins RN RN ll1 Corrections: (The following items were deleted from the chart) 18:02 16:56 Patient has correct armband on for positive identification. Bed in low position. ll1 Call light in reach. Side rails up X 1. ll1
[2021-06-06 19:48] VITALS: BP 151/109; TEMP 98.2; O2SAT 99
== END 2021-06-06 18:57 | disposition home or self-care (01) ==
LOC: ER 16:13
DX: M23.92 Unspecified internal derangement of left knee (principal); X50.1XXA Overexertion from prolonged static or awkward postures, initial encounter; Y92.009 Unspecified place in unspecified non-institutional (private) residence as the place of occurrence of the external cause; I10 Essential (primary) hypertension; Z88.5 Allergy status to narcotic agent; Z88.6 Allergy status to analgesic agent
CPT/HCPCS: 99283

== ENCOUNTER 2022-12-26 15:01 | Emergency (ER) | payer OTHER ==
--- OUTSIDE RECORDS SUMMARY | 2022-12-26 15:05 | XMS REPORT | Continuity of Care Document ---
:1990 Author Organization [facility] t Address [address] [facility] [address] [place] [address] Care Team Providers Name Role Phone SANTI GREENBERG Primary Care Physician Unavailable Ulysses Amaya Attending Clinician Unavailable KELLEN PRASAD Attending Clinician Unavailable SANTI GREENBERG Attending Clinician Unavailable SCARLETT CAMACHO Attending Clinician Unavailable Janice WHCNScarlett Livingston Attending Clinician [phone] VICTOR M DAWSON Attending Clinician Unavailable Santi Renae Attending Clinician Lab, Ang[facility]Rmch[facility] Attending Clinician Unavailable Reece Howard RN Attending Clinician Unavailable Doctor Unassigned, [place] Attending Clinician Unavailable MARTA LAGUERRE Attending Clinician Unavailable UNKNOWN, ATTENDING Attending Clinician Unavailable DENICE VICENTE Attending Clinician Unavailable KELLEN PARSAD Admitting Clinician Unavailable Payers Payer Name Policy Type Policy Number Effective Date Expiration Date Max fowler MEDICAID [facility] [id number] 2021 [place] 00:00:00 [facility] [id number] 2020 [facility] MEDICAID 00:00:00 Problems Condition Condition Condition Status Onset Resolution Last Treating Co mments Source Name Details Category Date Date Treatment Clinician Date History of History of Disease Active U nivers ectopic ectopic 02-06 ity of 00:00: Nathaly manriquez Medical Branch Routine Routine Disease Active Univers 02-06 [place] of [place] Supervisio Supervisio Disease Active U nivers n of high n of high 01-26 ity of risk risk 00:00: [place] 00 Medi maine in first in first Branch trimester trimester Two Two Disease Active Univers previous previous 01-26 ity of spontaneou [place] abortions Bran ch (SAB) (SAB) affecting affecting care of care of mother, mother, antepartum antepartum , first , first trimester trimester Multiparit Multiparit Disease Active U nivers y y 01-26 ity of 00:00: [facility] Branch Bleeding Bleeding Disease Active Unive rs in early in early 01-26 [place] Screening Screening Disease Active Uni vers examinatio examinatio 7-15 it y of n for STD n for STD [place] ([place]ually (sexually 00 Medi maine transmitte transmitte Br anch d disease) d disease) Encounter Encounter Disease Active Uni vers for for 4-23 ity of contracept [place]pt [place]ss[place] 00 Medical management management Br anch , , unspecifie unspecifie d type d type BMI BMI Disease Active Univers 45.0-49.9, 45.0-49.9, 4-23 it y of adult adult 00:00: Medical Branch Metrorrhag Metrorrhag Disease Active U nivers ia ia 4- ity of 00:00: Medical Branch Morbid Morbid Disease Active Univers obesity obesity 4-23 ity of 00:00: Medical Branch Allergies, Adverse Reactions, Alerts Allergy Allergy Status Severity Reaction(s) Onset Inactive Treating Comm ents Source Name Type Date Date Clinician ASPIRIN [facility] HYDROCOD Allergy [facility] IBUPROFE Allergy [facility] ASPIRIN DRUG Active High Other-Cmnt Unive rs INGREDI 09-23 ity of 00:00: [place] 00 Medical Branch HYDROCOD DRUG Active High Other-Cmnt Univ ers ONE INGREDI 09-23 ity of 00:00: [place] 00 Medical Branch IBUPROFE DRUG Active High Other-Cmnt Univ ers N INGREDI 09-23 ity of 00:00: [place] 00 Medical Branch Aspirin Propensi Active Other - See Seizure U nivers ty to comments 09-23 ity of adverse 00:00: [place] reaction 00 Medical s Branch Hydrocod Propensi Active Other - See seizures Univers one ty to comments 09-23 ity of adverse 00:00: [place] reaction 00 Medical s Branch Ibuprofe Propensi Active Other - See Seizures Univers n ty to comments 09-23 ity of adverse 00:00: [place] reaction 00 Medical s Branch Social History Social Habit Start Date Stop Date Quantity Comments Source ASSERTION 2022-01-15 University of 00:00:00 [place] [facility] History [facility] o f Alcohol Frequency [facility] edical Branch History [facility] o f Alcohol Std [place] [facility] Drinks Branch History [facility] o f Alcohol Binge [place] [facility] al Branch Exposure to 2022-02-12 2022-02-22 Not sure University of SARS-CoV-2 00:00:00 14:25:00 [facility] (event) Branch Tobacco use and 2022-02-22 2022-02-22 Smokeless tobacco Un iversity of exposure 00:00:00 00:00:00 non-user [facility] Alcohol intake 2022-02-22 2022-02-22 Current drinker Unive rsity of 00:00:00 00:00:00 of alcohol [place] [facility] (finding) Branch Tobacco Comment 2022-02-22 2022-02-22 on and off since Uni versity of 00:00:00 00:00:00 age 14. quit 2017 [facility] edical Branch Alcohol Comment 2017-09-23 2017-09-23 ocassional Universit y of 00:00:00 00:00:00 [place] [facility] [place] History of 2004-09-23 2016-09-23 Cigarette Smoker Universi ty of tobacco use 00:00:00 00:00:00 [facility] Sex Ass[birth year] At [birth year] Universit y of 00:00:00 00:00:00 [facility] Smoking Status Start Date Stop Date Source Ex-smoker 2022-02-22 00:00:00 2022-02-22 00:00:00 [facility] Medications Ordered Filled Start Stop Current Ordering Indication Dosage Frequency Signature Comments Components Source Medication Medication Date Date Medication? Clinician (SIG) Name Name No known No No known Unive rs medications 02-22 medication it y of 14:49: s [address] No known 2021- No No known Unive rs medications 02-22 medication it y of 14:49: s [address] No known No No known Unive rs medications 9- medication it y of 15:51: s [address] No known No No known Unive rs medications 8- medication it y of 08:46: s [address] No known No No known Unive rs medications 8-29 medication it y of 08:46: s [address] Immunizations Ordered Filled Immunization Date Status Comments Sour e Immunization Name Name TDAP (ADACEL) 2017-07-04 Completed University of VACCINE 00:00:00 [facility] TDAP (ADACEL) 2017-07-04 Completed University of VACCINE 00:00:00 [facility] TDAP (ADACEL) 2017-07-04 Completed University of VACCINE 00:00:00 [facility] TDAP (ADACEL) 2017-07-04 Completed University of VACCINE 00:00:00 [facility] TDAP (ADACEL) 2017-07-04 Completed University of VACCINE 00:00:00 [facility] Vital Signs Vital Name Observation Time Observation Value Comments Source HEIGHT 2022-08-20 08:53:00 162.6 cm WEIGHT 2022-08-20 08:53:00 118.502 kg Systolic blood 2022-02-22 19:26:00 123 mm[Hg] Univer sity of pressure [facility] Diastolic blood 2022-02-22 19:26:00 79 mm[Hg] Unive rsity of pressure [facility] Heart rate 2022-02-22 19:26:00 99 /min [facility] Body temperature 2022-02-22 19:26:00 36.28 Caryl Univ ersity [facility] Respiratory rate 2022-02-22 19:26:00 18 /min [facility] [place] Body height 2022-02-22 19:26:00 160 cm Universi ty of [facility] Body weight 2022-02-22 19:26:00 117.708 kg Universi ty [facility] BMI 2022-02-22 19:26:00 45.97 kg/m2 Universi ty [facility] Systolic blood 2022-02-06 20:35:00 132 mm[Hg] Univer sity of pressure [facility] Diastolic blood 2022-02-06 20:35:00 75 mm[Hg] Unive rsity of [facility] Heart rate 2022-02-06 20:35:00 78 /min Universi ty [facility] Body temperature 2022-02-06 20:35:00 36 [facility]aryl [facility] [place] Respiratory rate 2022-02-06 20:35:00 18 /min [facility] [place] Body weight 2022-02-06 20:35:00 117.663 kg Universi ty [facility] BMI 2022-02-06 20:35:00 45.95 kg/m2 Universi [facility] HEIGHT 2022-02-03 23:00:00 160 cm WEIGHT 2022-02-03 23:00:00 116.9 kg HEIGHT 2022-02-03 13:24:00 160 cm WEIGHT 2022-02-03 13:24:00 117.935 kg HEIGHT 2022-02-03 23:00:00 160 cm WEIGHT 2022-02-03 23:00:00 116.9 kg HEIGHT 2022-02-03 13:24:00 160 cm WEIGHT 2022-02-03 13:24:00 117.935 kg Procedures Procedure Date / Time Performed Performing Clinician Mic jane POCT TEST 2022-02-22 20:40:00 Scarlett Camacho [facility] POCT TEST 2022-02-06 21:27:00 Scarlett Camacho [facility] Encounters Start End Encounter Admission Attending Care Care Encounter Source Date/Time Date/Time Type Type Clinicians Facility Department ID 2022-05-17 [facility] [id number] Common 15:20:01 [facility] 2022-03-19 Outpatient Amaya, STLMLC STLMLC [id number] Common 14:41:02 [facility] 2021-12-21 Outpatient Amaya, STLMLC STLMLC [id number] Common 09:08:02 [facility] 2021-12-12 Outpatient Amaya, STLMLC STLMLC [id number] Common 14:04:03 [facility] 2021-10-02 Outpatient Amaya, STLMLC STLMLC [id number] Common 15:59:02 [facility] 2021-06-28 Outpatient Amaya, STLMLC STLMLC [id number] Common 14:34:17 [facility] 2021-06-28 Outpatient Amaya, STLMLC STLMLC [id number] Common 14:31:07 [facility] 2021-06-28 Outpatient Amaya, STLMLC STLMLC [id number] Common 14:30:44 [facility] 2021-06-28 Outpatient Amaya, STLMLC STLMLC [id number] Common 14:20:39 [facility] 2021-06-28 Outpatient Amaya, STLMLC STLMLC [id number] Common 14:19:30 Ulysses [id number] [facility] 2021-06-28 Outpatient Amaya, STLMLC STLMLC [id number] Common 13:46:41 Ulysses [id number] [facility] 2021-06-28 Outpatient Amaya, STLMLC STLMLC [id number] Common 13:45:05 Ulysses 74919 [facility] 2021-06-28 Outpatient STLMLC STLMLC [id number] Common 13:34:29 [facility] 2022-08-20 2022-08-20 Outpatient MICHELLE PRASAD, SLSL SLSL [id number] SLSL 13:31:28 23:59:00 KELLEN 2022-08-20 2022-08-20 Outpatient MICHELLE PRASAD [facility] [id number] 08:41:01 09:12:26 [facility] 2022-02-23 2022-02-23 Outpatient Andrei GREENBERG, [facility] [id number] Univers 10:45:00 10:45:00 SANTI ity o [facility] 2022-02-22 2022-02-22 Outpatient R AKINSIPE, [facility] [id number] Univers 14:30:00 14:47:24 SCARLETT ity o [facility] 2022-02-22 2022-02-22 [facility] [id number] Univers 14:30:00 14:47:24 Visit Scarlett C LUMBER PLANER [id number] ity of REGIONAL [id number] Ron as MATERNAL [id number] Med ical & CHILD [address] [place] [address] 2022-02-20 2022-02-20 [facility] [id number] Univers 15:30:00 15:30:00 SCARLETT mason o [facility] 2022-02-14 2022-02-14 Outpatient MICHELLE PRASAD [facility] [id number] 10:48:35 11:17:38 [facility] 2022-02-13 2022-02-13 Outpatient MICHELLE PRASAD [facility] [id number] 00:00:00 00:00:00 [facility] 2022-02-06 2022-02-06 Outpatient R CHRISTOSPE, [facility] [id number] Univers 12:45:00 15:48:40 SCARLETT ity o [facility] 2022-02-06 2022-02-06 [facility] [id number] Univers 12:45:00 15:48:40 Scarlett C LUMBER PLANER [id number] ity of Visit REGIONAL [id number] Ron as MATERNAL [id number] Med ical & CHILD [address] [place] [address] 2022-02-03 2022-02-04 Inpatient ER VIOLETTA, NOHELIAL [facility] [id number] [facility] 13:28:00 07:30:00 KELLEN 2022-02-02 2022-02-02 Telephone Christosniels [facility] [id number] Univers 00:00:00 00:00:00 Scarlett Vera [employer]ER [id number] ity General acute hospital 4.2.7.2.686 Ron as MATERNAL [id number] [facility] & [address] 2022-02-02 2022-02-02 [facility]phone [facility] [id number] Univers 00:00:00 00:00:00 Santi [facility] [id number] ity [facility] 4.2.7.2.686 Ron as CISCO?BLEA [id number] Nd kwame[address] MEDICAL OFFICE BUILDING 2022-01-31 2022-01-31 Collarette Separator Lab, [facility] [id number]. [id number] Univers 08:00:00 08:15:00 Visit Santi Greenberg [employer]ER [id number] ity of [facility] 4.2.7.2.686 Ron as MATERNAL [id number] [address] 2022-01-31 2022-01-31 Outpatient Andrei GREENBERG [facility] [id number] Univers 08:00:00 08:00:00 SANTI mason o [facility] 2022-01-27 2022-01-27 Nurse JUDITH Howard [id number] Univers 00:00:00 00:00:00 Triage Reece LOMAS 350.1.13.10 ity [facility] 4.2.7.2.686 Ron as [id number] [address] 2022-01-26 2022-01-26 Outpatient Andrei GREENBERG [facility] [id number] Univers 08:45:00 11:25:40 SANTI mason o ruchi [facility] 2022-01-26 2022-01-26 Initial [facility] [id number] Univers 08:45:00 11:25:40 Santi R [employer]UM[employer] PLANER 350.1.13.10 ity of Visit [facility] 4.2.7.2.686 Ron as MATERNAL [id number] [facility] & [address] 2022-01-26 2022-01-26 Office [facility] [id number] Univers 10:30:00 10:45:00 Visit Santi R LUMBER PLANER [id number] ity of REGIONAL 4.2.7.2.686 Ron as MATERNAL [id number] [facility] & CHILD [address] [place] [address] 2022-01-26 2022-01-26 [facility] [id number] Univers 08:45:00 08:45:00 SANTI kasiey o [facility] 2022-01-26 2022-01-26 Orders Doctor JUDITH [id number] Univers 00:00:00 00:00:00 Only Unassigned, ABEBE 350.1.13.10 ity of [employer] [place] [facility] 4.2.7.2.686 Ron as [id number] [address] 2022-01-19 2022-01-19 Outpatient R JANICE [facility] [id number] Univers 13:00:00 13:00:00 SCARLETT mason o [facility] 2021-04-10 2021-04-10 Outpatient R SHADE [facility] [id number] Univers 13:15:00 13:15:00 MARTA [facility] [place] 2021-03-20 2021-03-20 Outpatient R VAHE, [facility] [id number] Univers 13:00:00 13:00:00 ATTENDING itpierce [facility] 2021-03-19 2021-03-19 Outpatient R YFN [facility] [id number] Univers 13:20:00 13:20:00 DENICE Manriquez it y [facility] 2021-03-18 2021-03-18 Outpatient R [facility] [id number] Univers 12:00:00 [facility] 2020-11-17 2020-11-17 Outpatient Andrei GREENBERG [facility] [id number] Univers 09:00:00 09:00:00 SANTI hopper [facility] 2020-11-16 2020-11-16 Outpatient Andrei GREENBERG [facility] [id number] Univers 08:45:00 08:45:00 SANTI hopper [facility] 2020-04-13 2020-04-13 Outpatient Andrei GREENBERG [facility] [id number] Univers 15:00:00 15:00:00 [facility] Results Test Description Test Time Test Comments Results Result [facility] e Comments U/S, ENDOVAGINAL 2022-08-20 Reason for (EV) 17:51:00 Exam:->[id number] [facility] 1990 Sex: F FINAL REPORT U/S, ENDOVAGINAL (EV), U/S, PELVIS, U/S, DUPLEX, DOPPLER CLINICAL HISTORY: n926 Last Menstrual Period: 06/22/2022. COMPARISON: Pelvic ultrasound 02/03/2022 TECHNIQUE: Real time two-dimensional grayscale pelvic ultrasound was performed. Color and spectral Doppler images of the adnexa were also obtained. Transabdominal and transvaginal views were obtained. FINDINGS: Uterus: 6.8 x 3.1 x 4.2 cm in long x AP x TR dimensionsMyometrium: Homogeneous in echogenicityFocal uterine lesions: NoneNabothian cysts in the cervix measuring 1.0 x 0.7 x 1.0 cm. Endometrium: 3 mm in thicknessFocal endometrial lesions: None Right ovary: 3.5 x 2.4 x 2.7 cmAppearance: Incidental dominant follicle, otherwise unremarkableAdnexal mass: None Left ovary: 3.0 x 2.1 x 1.9 cmAppearance: Normal with Doppler flowAdnexal mass: None Free fluid: Small volume free fluid, likely physiologic IMPRESSION: Normal pelvic ultrasound. Signed: Debra Willingham MDReport Verified Date/Time: 08/20/2022 17:51:10 Reading Location: [facility] Radiology Reading Room U/S, DUPLEX, 2022-08-20 n926 DOPPLER 17:51:00 [facility] 1990 Sex: F FINAL REPORT U/S, ENDOVAGINAL (EV), U/S, PELVIS, U/S, DUPLEX, DOPPLER CLINICAL HISTORY: n926 Last Menstrual Period: 06/22/2022. COMPARISON: Pelvic ultrasound 02/03/2022 TECHNIQUE: Real time two-dimensional grayscale pelvic ultrasound was performed. Color and spectral Doppler images of the adnexa were also obtained. Transabdominal and transvaginal views were obtained. FINDINGS: Uterus: 6.8 x 3.1 x 4.2 cm in long x AP x TR dimensionsMyometrium: Homogeneous in echogenicityFocal uterine lesions: NoneNabothian cysts in the cervix measuring 1.0 x 0.7 x 1.0 cm. Endometrium: 3 mm in thicknessFocal endometrial lesions: None Right ovary: 3.5 x 2.4 x 2.7 cmAppearance: Incidental dominant follicle, otherwise unremarkableAdnexal mass: None Left ovary: 3.0 x 2.1 x 1.9 cmAppearance: Normal with Doppler flowAdnexal mass: None Free fluid: Small volume free fluid, likely physiologic IMPRESSION: Normal pelvic ultrasound. Signed: Debra Willingham Verified Date/Time: 08/20/2022 17:51:10 Reading Location: [facility] Radiology Reading Room U/S, PELVIS 2022-08-20 n926 17:51:00 [facility] 1990 Sex: F FINAL REPORT U/S, ENDOVAGINAL (EV), U/S, PELVIS, U/S, DUPLEX, DOPPLER CLINICAL HISTORY: n926 Last Menstrual Period: 06/22/2022. COMPARISON: Pelvic ultrasound 02/03/2022 TECHNIQUE: Real time two-dimensional grayscale pelvic ultrasound was performed. Color and spectral Doppler images of the adnexa were also obtained. Transabdominal and transvaginal views were obtained. FINDINGS: Uterus: 6.8 x 3.1 x 4.2 cm in long x AP x TR dimensionsMyometrium: Homogeneous in echogenicityFocal uterine lesions: NoneNabothian cysts in the cervix measuring 1.0 x 0.7 x 1.0 cm. Endometrium: 3 mm in thicknessFocal endometrial lesions: None Right ovary: 3.5 x 2.4 x 2.7 cmAppearance: Incidental dominant follicle, otherwise unremarkableAdnexal mass: None Left ovary: 3.0 x 2.1 x 1.9 cmAppearance: Normal with Doppler flowAdnexal mass: None Free fluid: Small volume free fluid, likely physiologic IMPRESSION: Normal pelvic ultrasound. Signed: Debra Willinghamort Verified Date/Time: 08/20/2022 17:51:10 Reading Location: [facility] Radiology Reading Room TEST 2022-02-22 20:41:00 Test Item Value Reference Range Interpretation Comme nts POCT PREG (test code = 1605) Negative On board controls acceptable with C Line (test code = 3574) Yes POCT PREG LOT # (test code = 3575) POCT PREG TEST DATE (test code = 3576) [facility] [id number] 20:41:00 Test Item Value Reference Range Interpretation Comments POCT PREG (test code = 1605) Negative On board controls acceptable with C Yes Line (test code = 3574) POCT PREG LOT # (test code = 3575) POCT PREG TEST DATE (test code = 3576) [id number] 15:46:49Surgical Pathology Report Case: [id number] Authorizing Provider: Kellen Prasad MD Collected: 02/03/2022 09:13 PM Ordering Location: [facility] Med Surg 5th Floor Received: 02/06/2022 08:41 AM Pathologist: Lori Lo MD Specimen: Soft Tissue, Other, left ECTOPIC FALLOPIAN TUBE, LEFT, LAPAROSCOPIC SALPINGECTOMY: - ECTOPIC (TUBAL) - NO DEFINITE FEATURES OF RUPTURE SEEN - SEROSAL ADHESIONS - NEGATIVE FOR MALIGNANCY Signing Pathologist Direct Phone Line: [phone] signed by Lori Lo MD on 02/07/2022 at 3:46 [id number] pregnancyA.Soft Tissue, Other.Received in formalin labeled with the patient's information and labeled "soft tissue, other, description: ectopic " is a fallopian tube displaying fimbria at one end. The specimen measures 5.8 x 0.6 x 0.5 cm. The serosa is focally congested and hemorrhagic. No rupture is identified. The specimen is serially sectioned to reveal focally dilated tube with some spongy materialinside. Specimen is submitted entirely in cassette labeled A1 to A3. BH/pl PERFORMEDPOCT [id number] 21:28:00 Test Item Value Reference Range Interpretation Comments POCT PREG (test code = 1605) Positive On board controls acceptable with C Yes Line (test code = 3574) POCT PREG LOT # (test code = 3575) POCT PREG TEST DATE (test code = 3576) [facility] [id number] 18:08:26 Test Item Value Reference Range Interpretation Comments SARS COVID ANTIGEN (test code = Negative Negative [id number]) The QuickVue SARS Antigen test does not differentiate between SARS-CoV and SARS-CoV-2.The test has been authorized by the FDA under an EUA for use by authorized laboratories.U/S, , FIRST [id number] 17:27:00Reason for exam:->, LLQ pain [facility] 1990 Sex: FFINAL REPORT OB ultrasound dated 02/03/2022 Comparison: None LMP 01/01/2022. EGA by LMP is 4 weeks and 5 days Comment: Real time transpelvic and endovaginal ultrasound were performed. Color and spectral Doppler ultrasound was performed to evaluate ovarian blood flow. The uterus measures 7.6 x 3.9 x 4.1 cm. The right ovary measures 3.2 x 1.6 x 2.7 cm.The left ovary measures 3.2 x 1.6 x 2.7 cm. A mass adjacent to the left ovary measures 1.8 x 1.6 x 1.5 cm.Spectral Doppler demonstrates arterial waveforms in both ovaries. Trace free fluid in the pelvis No intrauterine patency was visualized. Impression: The findings are most consistent with a left adnexal ectopic which measures 1.8 cm. Signed: Nils Issa MDReport Verified Date/Time: 02/03/2022 17:27:37 Reading Location: [facility] B1 C013Y [place] Body Reading Room U/S, ENDOVAGINAL (EV)2022-02-03 17:27:00Reason for exam:->, LLQ pain [facility] 1990 Sex: FFINAL REPORT OB ultrasound dated 02/03/2022 Comparison: None LMP 01/01/2022. EGA by LMP is 4 weeks and 5 days Comment: Real time transpelvic and endovaginal ultrasound were performed. Color and spectral Doppler ultrasound was performed to evaluate ovarian blood flow. The uterus measures 7.6 x 3.9 x 4.1 cm. The right ovary measures 3.2 x 1.6 x 2.7 cm.The left ovary measures 3.2 x 1.6 x 2.7 cm. A mass adjacent to the left ovary measures 1.8 x 1.6 x 1.5 cm.Spectral Doppler demonstrates arterial waveforms in both ovaries. Trace free fluid in the pelvis No intrauterine patency was visualized. Impression: The findings are most consistent with a left adnexal ectopic which measures 1.8 cm. Signed: Nils Issa MDReport Verified Date/Time: 02/03/2022 17:27:37 Reading Location: [facility] Body Reading Room U/S, DUPLEX, [id number] 17:27:00 Reason for exam:->, LLQ pain [facility] : 1990 Sex: FFINAL REPORT OB ultrasound dated 02/03/2022 Comparison: None LMP 01/01/2022. EGA by LMP is 4 weeks and 5 days Comment: Real time transpelvic and endovaginal ultrasound were performed. Color and spectral Doppler ultrasound was performed to evaluate ovarian blood flow. The uterus measures 7.6 x 3.9 x 4.1 cm. The right ovary measures 3.2 x 1.6 x 2.7 cm.The left ovary measures 3.2 x 1.6 x 2.7 cm. A mass adjacent to the left ovary measures 1.8 x 1.6 x 1.5 cm.Spectral Doppler demonstrates arterial waveforms in both ovaries. Trace free fluid in the pelvis No intrauterine patency was visualized. Impression: The findings are most consistent with a left adnexal ectopic which measures 1.8 cm. Signed: Nils Issa MDReport Verified Date/Time: 02/03/2022 17:27:37 Reading Location: [facility] C013Y [place] Body Reading Room HCG, QUANTITATIVE, [id number] 15:13:39 Test Item Value Reference Range Interpretation Comments GONADOTROPIN, CHORIONIC (HCG) 1033 mIU/mL 0-10 H QUANT (BEAKER) (test code = 649) Non- Females: <10 mIU/mL Females: Gestation Age Reference Range(mIU/mL) 0.2-1 Week 5-50 1-2 Weeks 50-500 2-3 Weeks 100-5,000 3-4 Weeks 500-10,000 4-5 Weeks 1,000-50,000 5-6 Weeks 10,000-100,000 6-8 Weeks 15,000- 200,000 2-3 Months 10,000-100,000 Tax Services Specialist ID - LITOCOMPREHENSIVE METABOLIC [id number] 14:33:27 Test Item Value Reference Range Interpretation Comments TOTAL PROTEIN 7.2 gm/dL 6.0-8.5 (BEAKER) (test code = 770) ALBUMIN (BEAKER) 4.3 g/dL 3.5-5.0 (test code = 1145) ALKALINE 48 U/L 30-115 PHOSPHATASE (BEAKER) (test code = 346) BILIRUBIN TOTAL 0.3 mg/dL 0.1-1.2 (BEAKER) (test code = 377) SODIUM (BEAKER) 139 meq/L 135-148 (test code = 381) POTASSIUM (BEAKER) 3.9 meq/L 3.6-5.5 (test code = 379) CHLORIDE (BEAKER) 105 meq/L 98-106 (test code = 382) CO2 (BEAKER) (test 23 meq/L 20-29 code = 355) BLOOD UREA 11 mg/dL 10-26 NITROGEN (BEAKER) (test code = 354) CREATININE 0.66 mg/dL 0.50-1.20 (BEAKER) (test code = 358) GLUCOSE RANDOM 97 mg/dL 70-110 (BEAKER) (test code = 652) CALCIUM (BEAKER) 9.0 mg/dL 8.5-10.5 (test code = 697) AST (SGOT) 17 U/L 5-40 (BEAKER) (test code = 353) ALT (SGPT) 21 U/L 5-50 (BEAKER) (test code = 347) EGFR (BEAKER) 120 Interpretatio n of eGFR (test code = 1092) mL/min/1.[address] age Description sq m Result G1 Jessica l or high >=90 G2 Mildly decreased 60-89 G3a Mildl y to moderately 45-5 9 G3b Moderately to s everely 30-44 G4 Severl y decreased 15-29 G5 Kidney failure <15Reported eGF R is based on the CKD-EPI 2020 equation that d oes not use a race coefficientEsti mated GFR is not as accur ate as Creatinine Marlin jannie in predicting glom erular filtration rate . Estimated GFR is not appl icable for dialysis patien ts Tax Services Specialist ID - LITOOperator ID - LITOOperator ID - LITOOperator ID - LITOOperator ID - LITOOperator ID - LITOOperator ID - LITOOperator ID - LITOOperator ID - LITOOperator ID - LITOOperator ID - LITOOperator ID - LITOOperator ID - LITOOperator ID - LITOOperator ID - LITOOperator ID - LITOOperator ID - L ITOOperator ID - LITOOperator ID - LITOURINALYSIS W/ REFLEX URINE CULTURE 2022-02-03 14:30:28 Test Item Value Reference Range Interpretation Comments COLOR (BEAKER) (test code = Yellow 470) CLARITY (BEAKER) (test code = Clear 469) SPECIFIC GRAVITY UA (BEAKER) 1.015 1.001-1.035 (test code = 468) PH UA (BEAKER) (test code = 7.5 5.0-8.0 467) PROTEIN UA (BEAKER) (test code Negative Negative = 464) GLUCOSE UA (BEAKER) (test code Negative Negative = 365) KETONES UA (BEAKER) (test code Negative Negative = 371) BILIRUBIN UA (BEAKER) (test Negative Negative code = 462) BLOOD UA (BEAKER) (test code = Moderate Negative A 461) NITRITE UA (BEAKER) (test code Negative Negative = 465) LEUKOCYTE ESTERASE UA (BEAKER) Negative Negative (test code = 466) UROBILINOGEN UA (BEAKER) (test 1.0 mg/dL 0.2-1.0 code = 463) BACTERIA (BEAKER) (test code = Few 517) RBC UA-MANUAL (BEAKER) (test None Seen /HPF code = 1659) WBC UA-MANUAL (BEAKER) (test None Seen /HPF code = 1661) SQUAMOUS EPITHELIAL MANUAL 5-10 /HPF (BEAKER) (test code = 1663) SOURCE(BEAKER) (test code = 2795) SCREEN, [id number] 14:26:24 Test Item Value Reference Range Interpretation Comments TEST URINE (BEAKER) (test Positive Negative A code = 583) CBC W/PLT COUNT & AUTO [id number] 14:13:40 Test Item Value Reference Range Interpretation Comments WHITE BLOOD CELL COUNT (BEAKER) 3.7 K/ L 4.0-10.0 L (test code = 775) RED BLOOD CELL COUNT (BEAKER) 5.17 M/ L 4.00-5.00 H (test code = 761) HEMOGLOBIN (BEAKER) (test code = 12.8 GM/DL 12.0-15.5 410) HEMATOCRIT (BEAKER) (test code = 38.1 % 36.0-46.0 411) MEAN CORPUSCULAR VOLUME (BEAKER) 73.7 fL 82.0-99.0 L (test code = 753) MEAN CORPUSCULAR HEMOGLOBIN 24.8 pg 27.0-33.0 L (BEAKER) (test code = 751) MEAN CORPUSCULAR HEMOGLOBIN CONC 33.6 GM/DL 32.0-36.0 (BEAKER) (test code = 752) RED CELL DISTRIBUTION WIDTH 14.1 % 12.0-15.0 (BEAKER) (test code = 412) PLATELET COUNT (BEAKER) (test 294 K/CU MM 150-430 code = 756) MEAN PLATELET VOLUME (BEAKER) 10.0 fL 6.0-11.5 (test code = 754) NUCLEATED RED BLOOD CELLS 0 /100 WBC 0-0 (BEAKER) (test code = 413) NEUTROPHILS RELATIVE PERCENT 40 % (BEAKER) (test code = 429) LYMPHOCYTES RELATIVE PERCENT 51 % (BEAKER) (test code = 430) MONOCYTES RELATIVE PERCENT 7 % (BEAKER) (test code = 431) EOSINOPHILS RELATIVE PERCENT 2 % (BEAKER) (test code = 432) BASOPHILS RELATIVE PERCENT 1 % (BEAKER) (test code = 437) NEUTROPHILS ABSOLUTE COUNT 1.48 K/ L 1.80-8.00 L (BEAKER) (test code = 670) LYMPHOCYTES ABSOLUTE COUNT 1.88 K/ L 1.48-4.50 (BEAKER) (test code = 414) MONOCYTES ABSOLUTE COUNT (BEAKER) 0.26 K/ L 0.00-1.30 (test code = 415) EOSINOPHILS ABSOLUTE COUNT 0.06 K/ L 0.00-0.50 (BEAKER) (test code = 416) BASOPHILS ABSOLUTE COUNT (BEAKER) 0.02 K/ L 0.00-0.20 (test code = 417) IMMATURE GRANULOCYTES-RELATIVE 0 % 0-0 PERCENT (BEAKER) (test code = 2801)
--- NOTE | 2022-12-26 15:32 | RAD REPORT ---
EXAM DESCRIPTION: RAD - Hand Right 3 View - 12/26/2022 3:26 pm CLINICAL HISTORY: PAIN COMPARISON: No comparisons FINDINGS: No acute fracture or dislocation.
--- NOTE | 2022-12-26 16:40 | EDPHYS ---
Physician Documentation [facility] Name: Robyn Causey Age: 32 yrs Sex: Female : 1990 Arrival Date: 12/26/2022 Time: 15:01 Bed Treatment Private MD: ED Physician Kaya Amaya HPI: 12/26 16:40 This 32 yrs old Black Female presents to ER via Ambulatory with complaints of right snw hand pain. 16:40 The patient or guardian reports a contusion. The complaints affect the right hand snw diffusely. Context: resulted from accidentally struck upper bed frame with dorsal hand. Onset: The symptoms/episode began/occurred suddenly, just prior to arrival. Severity of symptoms: At their worst the symptoms were moderate. It is unknown whether or not the patient has had similar symptoms in the past. It is unknown whether or not the patient has recently seen a physician. 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 - Social history:: Smoking status: Patient denies any tobacco usage or history of. ROS: 16:41 Constitutional: Negative for fever, chills, and weight loss, Eyes: Negative for injury, snw pain, redness, and discharge, ENT: Negative for injury, pain, and discharge, Neck: Negative for injury, pain, and swelling, Cardiovascular: Negative for chest pain, palpitations, and edema, Respiratory: Negative for shortness of breath, cough, wheezing, and pleuritic chest pain, Abdomen/GI: Negative for abdominal pain, nausea, vomiting, diarrhea, and constipation, Back: Negative for injury and pain, : Negative for injury, bleeding, discharge, and swelling, Skin: Negative for injury, rash, and discoloration, Neuro: Negative for headache, weakness, numbness, tingling, and seizure, Psych: Negative for depression, anxiety, suicide ideation, homicidal ideation, and hallucinations. 16:41 MS/extremity: Positive for injury or acute deformity, contusion, pain, of the dorsum of right hand. Exam: 16:43 Constitutional: This is a well developed, well nourished patient who is awake, alert, snw and in no acute distress. Head/Face: Normocephalic, atraumatic. Eyes: Pupils equal round and reactive to light, extra-ocular motions intact. Lids and lashes normal. Conjunctiva and sclera are non-icteric and not injected. Cornea within normal limits. Periorbital areas with no swelling, redness, or edema. ENT: Nares patent. No nasal discharge, no septal abnormalities noted. Tympanic membranes are normal and external auditory canals are clear. Oropharynx with no redness, swelling, or masses, exudates, or evidence of obstruction, uvula midline. Mucous membranes moist. Neck: Trachea midline, no thyromegaly or masses palpated, and no cervical lymphadenopathy. Supple, full range of motion without nuchal rigidity, or vertebral point tenderness. No Meningismus. Chest/axilla: Normal chest wall appearance and motion. Nontender with no deformity. No lesions are appreciated. Cardiovascular: Regular rate and rhythm with a normal S1 and S2. No gallops, murmurs, or rubs. Normal PMI, no JVD. No pulse deficits. Respiratory: Lungs have equal breath sounds bilaterally, clear to auscultation and percussion. No rales, rhonchi or wheezes noted. No increased work of breathing, no retractions or nasal flaring. Abdomen/GI: Soft, non-tender, with normal bowel sounds. No distension or tympany. No guarding or rebound. No evidence of tenderness throughout. Back: No spinal tenderness. No costovertebral tenderness. Full range of motion. Skin: Warm, dry with normal turgor. Normal color with no rashes, no lesions, and no evidence of cellulitis. Neuro: Awake and alert, GCS 15, oriented to person, place, time, and situation. Cranial nerves II-XII grossly intact. Motor strength 5/5 in all extremities. Sensory grossly intact. Cerebellar exam normal. Normal gait. Psych: Awake, alert, with orientation to person, place and time. Behavior, mood, and affect are within normal limits. 16:43 Musculoskeletal/extremity: Extremities: grossly normal except: noted in the dorsum of right hand: contusion, tenderness, apparent remote fx of right distal radius. Vital Signs: 15:13 BP 125 / 80; Pulse 74; Resp 18 S; Temp 98.1(TE); Pulse Ox 100% on R/A; Weight 117.93 kg aa5 (R); Height 5 ft. 3 in. (R); 15:13 Body Mass Index 46.06 (117.93 kg, 160.02 cm) aa5 MDM: 16:24 Patient medically screened. snw 16:42 Differential diagnosis: dislocation, closed fracture, contusion. Data reviewed: vital snw signs, nurses notes, radiologic studies, plain films. I considered the following discharge prescriptions or medication management in the emergency department Medications were administered in the Emergency Department. See MAR. Counseling: I had a detailed discussion with the patient and/or guardian regarding: the historical points, exam findings, and any diagnostic results supporting the discharge/admit diagnosis, radiology results, the need for outpatient follow up, for definitive care, to return to the emergency department if symptoms worsen or persist or if there are any questions or concerns that arise at home. Special discussion: Based on the history and exam findings, there is no indication for further emergent testing or inpatient evaluation. I discussed with the patient/guardian the need to see the orthopedic surgeon for further evaluation of the symptoms. I discussed with the patient/guardian the need to see the primary care provider for further evaluation of the symptoms. 12/26 15:15 Order name: Hand Right 3 View XRAY; Complete Time: 15:39 aa5 Administered Medications: 17:16 Drug: HYDROcodone-acetaminophen PO 5 mg-325 mg 1 tabs Route: PO; cm10 Disposition Summary: 12/26/22 16:40 Discharge Ordered Location: Home snw Condition: Stable snw Diagnosis - Contusion of right hand snw Followup: snw - With: Emergency Department - When: As needed - Reason: Worsening of condition Followup: snw - With: Private Physician - When: 2 - 3 days - Reason: Recheck today's complaints, Continuance of care, Re-evaluation by your physician Discharge Instructions: - Discharge Summary Sheet snw - Hand Contusion snw Forms: - Medication Reconciliation Form snw - Thank You Letter snw - Antibiotic Education snw - Prescription Opioid Use snw - Patient Portal Instructions snw Signatures: Dispatcher [employer] EDFloridalma Garza, ANNABELLE-C PROCEDURE MANAGER-Csnw Lisa García RN RN aa5 Janna Gillis RN RN cm10 Corrections: (The following items were deleted from the chart) 15:13 15:12 Allergies: Codeine; [place] 17:16 16:39 Splint - Wrist ordered. [facility] cm10
--- NOTE | 2022-12-26 16:40 | ER ---
Nurse's Notes [facility] Name: Robyn Causey Age: 32 yrs Sex: Female : 1990 Arrival Date: 12/26/2022 Time: 15:01 Bed Treatment Private MD: Diagnosis: Contusion of right hand Presentation: 12/26 15:13 Chief complaint: Patient states: hit right hand on metal bed frame this morning. aa5 Coronavirus screen: At this time, the client does not indicate any symptoms associated with coronavirus-19. Ebola Screen: Patient denies travel to an Ebola-affected area in the 21 days before illness onset. Initial Sepsis Screen: Does the patient meet any 2 criteria? No. Patient's initial sepsis screen is negative. Does the patient have a suspected source of infection? No. Patient's initial sepsis screen is negative. Risk Assessment: Do you want to hurt yourself or someone else? Patient reports no desire to harm self or others. Onset of symptoms was December 26, 2022. 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 - Social history:: Smoking status: Patient denies any tobacco usage or history of. Screenin:54 [facility] ED Fall Risk Assessment (Adult) History of falling in the last 3 months, cm10 including since admission No falls in past 3 months (0 pts) Confusion or Disorientation No (0 pts) Intoxicated or Sedated No (0 pts) Impaired Gait No (0 pts) Mobility Assist Device Used No (0 pt) Altered Elimination No (0 pt) Score/Fall Risk Level 0 - 2 = Low Risk Oriented to surroundings, Maintained a safe environment, Hourly rounding (assess needs \T\ fall precautionary measures) done. Abuse screen: Denies threats or abuse. Denies injuries from another. Nutritional screening: No deficits noted. Tuberculosis screening: No symptoms or risk factors identified. Assessment: 16:53 General: Appears in no apparent distress. comfortable, Behavior is calm, cooperative. cm10 Pain: Complains of pain in right hand and dorsum of right hand. Neuro: No deficits noted. Level of Consciousness is awake, alert, Oriented to person, place, time, situation. Respiratory: No deficits noted. Airway is patent Respiratory effort is even, unlabored, Respiratory pattern is regular, symmetrical. Vital Signs: 15:13 BP 125 / 80; Pulse 74; Resp 18 S; Temp 98.1(TE); Pulse Ox 100% on R/A; Weight 117.93 kg aa5 (R); Height 5 ft. 3 in. (R); 15:13 Body Mass Index 46.06 (117.93 kg, 160.02 cm) aa5 ED Course: 15:10 Patient arrived in ED. aa5 15:12 Arm band placed on. aa5 15:14 Triage completed. aa5 15:21 Floridalma Klein [facility]C [facility]. snw 15:21 Kaya Amaya MD is Attending Physician. snw 15:28 Hand Right 3 View XRAY In Process Unspecified. EDMS 16:27 Janna Gillis, RN is Primary Nurse. cm10 17:16 Orthoglass splint: Volar splint applied on right arm. cm10 17:21 Patient has correct armband on for positive identification. Provided Education on: N/A. cm10 17:21 No provider procedures requiring assistance completed. Patient did not have IV access cm10 during this emergency room visit. Administered Medications: 17:16 Drug: HYDROcodone-acetaminophen PO 5 mg-325 mg 1 tabs Route: PO; cm10 Medication: 17:21 VIS not applicable for this client. cm10 Outcome: 16:40 Discharge ordered by . snw 17:21 Discharged to home ambulatory, with family. cm10 17:21 Condition: good 17:21 Discharge instructions given to patient, Instructed on discharge instructions, follow up and referral plans. Demonstrated understanding of instructions, follow-up care, splint care. 17:21 Patient left the ED. cm10 Signatures: Dispatcher [employer] EDMS Floridalma Klein FNP-C FNP-Lisa Concepcion RN RN aa5 Janna Gillis, [place] RN cm10 Corrections: (The following items were deleted from the chart) 15:13 15:12 Allergies: Codeine; aa5 aa5 15:15 15:14 [facility] 11/2022 aa5 aa5
[2022-12-26] MEDS ORDERED: HYDROCODONE/APAP 5/325 MG TAB ONE (17:14)
[2022-12-26 18:08] VITALS: BP 125/80; TEMP 98.1; O2SAT 100
== END 2022-12-26 17:21 | disposition home or self-care (01) ==
LOC: ER 15:01
DX: S60.221A Contusion of right hand, initial encounter (principal); Z88.6 Allergy status to analgesic agent
CPT/HCPCS: 99283

== ENCOUNTER 2024-07-28 08:50 | Emergency (ER) | payer OTHER, SELFPAY ==
[2024-07-28] MEDS ORDERED: ONDANSETRON 4 MG (ODT) TAB ONE (09:21)
[2024-07-28 10:47] LABS: Influenza A Ag Negative; Influenza B Ag Negative; SARS-CoV-2 Antigen Rapid Res Negative (Negative)
--- NOTE | 2024-07-28 11:32 | ER ---
Nurse's Notes [facility] Name: Robyn Causey Age: 34 yrs Sex: Female : 1990 Arrival Date: 07/28/2024 Time: 08:50 Bed DX3 Private MD: Diagnosis: Nasal congestion;Nausea Presentation: 07/28 09:07 Chief complaint: Patient states: Congestion, cough, fatigue, nausea, chills. mucous in ll1 throat for 2 days. Coronavirus screen: Client denies travel out of the [place] in the last 14 days. congestion, cough unrelated to allergies, fatigue, muscle pain, nausea, sore throat, Client presents with at least one sign or symptom that may indicate coronavirus-19. Standard/surgical mask placed on the client. Ebola Screen: Patient denies travel to an Ebola-affected area in the 21 days before illness onset. Initial Sepsis Screen: Does the patient meet any 2 criteria? No. Patient's initial sepsis screen is negative. Does the patient have a suspected source of infection? No. Patient's initial sepsis screen is negative. Risk Assessment: Do you want to hurt yourself or someone else? Patient reports no desire to harm self or others. Onset of symptoms was July 27, 2024. 09:07 Method Of Arrival: Ambulatory ll1 09:07 Acuity: SEBAS 4 ll1 Triage Assessment: 09:07 General: Appears uncomfortable, Behavior is calm, cooperative, appropriate for age. ll1 General: Reports chills for fatigue for. Pain: Complains of pain in head Quality of pain is described as aching, throbbing. EENT: Reports nasal congestion. Neuro: Reports headache weakness. Respiratory: Reports cough that is. GI: Reports nausea. 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 - Infectious Disease History:: Denies. - Social history:: Smoking status: Patient denies any tobacco usage or history of. - Family history:: not pertinent. Screenin:[facility] Fall Risk Assessment (Adult) History of falling in the last 3 months, ll1 including since admission No falls in past 3 months (0 pts) Confusion or Disorientation No (0 pts) Intoxicated or Sedated No (0 pts) Impaired Gait No (0 pts) Mobility Assist Device Used No (0 pt) Altered Elimination No (0 pt) Score/Fall Risk Level 0 - 2 = Low Risk Maintained a safe environment, Hourly rounding (assess needs \T\ fall precautionary measures) done. Abuse screen: Denies threats or abuse. Nutritional screening: No deficits noted. Tuberculosis screening: No symptoms or risk factors identified. Assessment: 09:29 Reassessment: No changes from previously documented assessment. Patient and/or family ll1 updated on plan of care and expected duration. Pain level reassessed. Patient is alert, oriented x 3, equal unlabored respirations, skin warm/dry/pink. 11:25 Reassessment: Patient and/or family updated on plan of care and expected duration. Pain ll1 level reassessed. 11:38 GI: Abdomen is flat. ll1 Vital Signs: 09:07 BP 148 / 96; Pulse 78; Resp 18; Temp 97.4; Pulse Ox 100% ; Weight 86.18 kg; Height 5 ll1 ft. 4 in. ; Pain 10/10; 11:37 BP 133 / 84; Pulse 81; Resp 17; Pulse Ox 100% ; ll1 09:07 Body Mass Index 32.61 (86.18 kg, 162.56 cm) ll1 09:07 Pain Scale: Adult ll1 ED Course: 08:53 Patient arrived in ED. im 08:58 Vignesh Martin MD is Attending Physician. rt 09:07 Arm band placed on. ll1 09:09 Triage completed. ll1 09:29 Group A Streptococcus Rapid Sent. bc6 09:29 COVID-19 Ag + Flu A+B Ag Sent. bc6 09:29 COVID swab sent to lab. Flu and/or RSV swab sent to lab. Strep swab sent to lab. bc6 11:24 Patient placed in an exam room, on a stretcher. ll1 11:38 Patient has correct armband on for positive identification. Provided Education on: ER ll1 procedures and process. 11:38 No provider procedures requiring assistance completed. Patient did not have IV access ll1 during this emergency room visit. Administered Medications: 09:28 Drug: Ondansetron Oral Disintegrating Tablet Oral Disintegrating Tablet 4 mg PO once ll1 Route: PO; 11:37 Follow up: Response: No adverse reaction; Pain is decreased ll1 Medication: 12:27 VIS not applicable for this client. ll1 Outcome: :31 Discharge ordered by . rt 11:38 Patient left the ED. ll1 11:38 Discharged to home ambulatory, ll1 11:38 Condition: stable 11:38 Discharge instructions given to patient, Instructed on discharge instructions, follow up and referral plans. medication usage, Demonstrated understanding of instructions, follow-up care, medications, Prescriptions given X 1, Signatures: Germán Jenkins RN RN ll1 Vignesh Martin MD MD rt Megan Johnson 6 Emilie Keith
--- NOTE | 2024-07-28 11:32 | EDPHYS ---
Physician Documentation [facility] Name: Robyn Causey Age: 34 yrs Sex: Female : 1990 Arrival Date: 07/28/2024 Time: 08:50 Bed DX3 Private MD: ED Physician Vignesh Martin HPI: 07/28 09:20 This 34 yrs old Black Female presents to ER via Ambulatory with complaints of Nausea, rt Congestion. 09:20 Patient presents to the ED with feelings of mucus in the back of her throat, congestion rt for the past 2 days. Reports nausea vomiting. Denies other acute complaints at this time, symptoms are mild in severity, no other aggravating or alleviating factors.. 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 - Infectious Disease History:: Denies. - Social history:: Smoking status: Patient denies any tobacco usage or history of. - Family history:: not pertinent. ROS: 09:20 Constitutional: Negative for fever, chills, and weight loss, Cardiovascular: Negative rt for chest pain, palpitations, and edema, Respiratory: Negative for shortness of breath, cough, wheezing, and pleuritic chest pain, Abdomen/GI: Negative for abdominal pain, nausea, vomiting, diarrhea, and constipation, MS/Extremity: Negative for injury and deformity, Skin: Negative for injury, rash, and discoloration, Neuro: Negative for headache, weakness, numbness, tingling, and seizure, 09:22 Abdomen/GI: Positive for nausea, negative for abdominal pain rt 09:22 ENT: Positive for rhinorrhea, sinus congestion, Exam: 09:23 Constitutional: This is a well developed, well nourished patient who is awake, alert, rt and in no acute distress. Head/Face: Normocephalic, atraumatic. ENT: Nares patent. No nasal discharge, no septal abnormalities noted. Tympanic membranes are normal and external auditory canals are clear. Oropharynx with no redness, swelling, or masses, exudates, or evidence of obstruction, uvula midline. Mucous membranes moist. Chest/axilla: Normal chest wall appearance and motion. Nontender with no deformity. No lesions are appreciated. Cardiovascular: Regular rate and rhythm with a normal S1 and S2. No gallops, murmurs, or rubs. Normal PMI, no JVD. No pulse deficits. Respiratory: Lungs have equal breath sounds bilaterally, clear to auscultation and percussion. No rales, rhonchi or wheezes noted. No increased work of breathing, no retractions or nasal flaring. Abdomen/GI: Soft, non-tender, with normal bowel sounds. No distension or tympany. No guarding or rebound. No evidence of tenderness throughout. Skin: Warm, dry with normal turgor. Normal color with no rashes, no lesions, and no evidence of cellulitis. MS/ Extremity: Pulses equal, no cyanosis. Neurovascular intact. Full, normal range of motion. Neuro: Awake and alert, GCS 15, oriented to person, place, time, and situation. Cranial nerves II-XII grossly intact. Motor strength 5/5 in all extremities. Sensory grossly intact. Cerebellar exam normal. Normal gait. Vital Signs: 09:07 BP 148 / 96; Pulse 78; Resp 18; Temp 97.4; Pulse Ox 100% ; Weight 86.18 kg; Height 5 ll1 ft. 4 in. ; Pain 10/10; 11:37 BP 133 / 84; Pulse 81; Resp 17; Pulse Ox 100% ; ll1 09:07 Body Mass Index 32.61 (86.18 kg, 162.56 cm) ll1 09:07 Pain Scale: Adult ll1 MDM: 09:11 Medical Screening Exam initiated rt 13:08 Differential diagnosis: Postnasal drip, gastroenteritis, viral syndrome. Data reviewed: rt vital signs, nurses notes, lab test result(s). Test considered but Not performed: CT: No abdominal tenderness, do not believe that CT scan is indicated, believe nauseous from postnasal drip.. Care significantly affected by the following chronic conditions: Hypertension. Counseling: I had a detailed discussion with the patient and/or guardian regarding the historical points, exam findings, and any diagnostic results supporting the discharge/admit diagnosis, lab results, the need for outpatient follow up. Response to treatment: the patient's symptoms have mildly improved after treatment. 02/25 09:16 Order name: COVID-19 Ag + Flu A+B Ag; Complete Time: 11:15 rt 07/28 09:16 Order name: Group A Streptococcus Rapid; Complete Time: 11:15 rt 07/28 10:16 Order name: Throat Culture EDMS Administered Medications: 09:28 Drug: Ondansetron Oral Disintegrating Tablet Oral Disintegrating Tablet 4 mg PO once ll1 Route: PO; 11:37 Follow up: Response: No adverse reaction; Pain is decreased ll1 Disposition Summary: 07/28/24 11:31 Discharge Ordered Notes: Location: Home rt Problem: new rt Symptoms: have improved rt Condition: Stable rt Diagnosis - Nasal congestion rt - Nausea rt Followup: rt - With: Private Physician - When: 2 - 3 days - Reason: Discharge Instructions: - Discharge Summary Sheet rt - Nausea, Adult rt - Postnasal Drip rt Forms: - Work release form ll1 - Medication Reconciliation Form rt - Antibiotic Education rt - Prescription Opioid Use rt - Patient Portal Instructions rt - Leadership Thank You Letter rt Prescriptions: - ondansetron 4 mg Oral Tablet,disintegrating - take 1 tablet ORAL route every 6 hours as needed for nausea; 15 tablet; rt Refills: 0, Product Selection Permitted Signatures: Dispatcher [employer] Germán Pichardo RN RN ll1 Vignesh Martin MD MD rt
[2024-07-28 11:41] VITALS: BP 148/96; TEMP 97.4; O2SAT 100
== END 2024-07-28 11:38 | disposition home or self-care (01) ==
LOC: ER 08:50
DX: R09.81 Nasal congestion (principal); Z11.52 Encounter for screening for COVID-19
CPT/HCPCS: 36415; 87070; 87428; 99283; Q0162